=== PATIENT | female | born 1975 | race Caucasian/White ===

== ENCOUNTER → 2017-08-13 17:55 | Outpatient (CLI) | payer BC, SELFPAY ==
--- NOTE | 2017-08-13 18:01 | XR_ITS ---
XR chest 2V HISTORY: ITS.REASON: MODERATE PERSISTENT ASTHMATIC BRONCHITIS WITH EXACERBATION ORDERING PHYSICIAN: Balwinder Willams MD PATIENT AGE: 42 years COMPARISON: FINDINGS: The cardiomediastinal silhouette and pulmonary vascularity are within normal limits. Coronary artery calcifications are present. There is hyperinflation with attenuation of peripheral pulmonary vessels. Patchy infiltrate is present within the lingula. No acute bony abnormalities. IMPRESSION: Hyperinflation consistent with small airway disease with infiltrate within the lingula
== END ==
PROVIDERS: PCP Family Medicine; Visit Provider Family Medicine
DX: J45.41 Moderate persistent asthma with (acute) exacerbation (principal)
CPT/HCPCS: 71046

== ENCOUNTER → 2017-09-18 12:03 | Outpatient (CLI) | payer BC, SELFPAY ==
--- NOTE | 2017-09-18 12:14 | XR_ITS ---
XR chest 2V HISTORY: ITS.REASON: COUGH ORDERING PHYSICIAN: Grady Montiel MD PATIENT AGE: 42 years COMPARISON: 08/22/2017 FINDINGS: The cardiomediastinal silhouette and pulmonary vascularity are within normal limits. The lungs are clear without infiltrates, suspicious nodules, or pleural effusions. Previously noted patchy density in the right lung base medially is not apparent No acute bony abnormalities. IMPRESSION: No acute finding
== END ==
PROVIDERS: PCP Family Medicine; Visit Provider Family Medicine
DX: R05 Cough (principal)
CPT/HCPCS: 71046

== ENCOUNTER → 2017-10-08 09:44 | Outpatient (CLI) | payer BC, SELFPAY ==
--- NOTE | 2017-10-08 09:47 | MM_ITS ---
MM Dig screening mamm BI w/CAD CAD Screening COMPARISON: Digital mammograms 04/24/2016 and 11/01/2015 INDICATION: There is no personal or family history of breast cancer. TECHNIQUE: Standard CC and MLO images were obtained. R2 CAD reviewed. FINDINGS: Moderate diffuse heterogenic fibroglandular densities are seen in both breast and the findings are bilateral and symmetrical. There are few scattered benign-appearing calcifications in each breast. There is no suspicious lesion and no suspicious microcalcifications. IMPRESSION: Moderate diffuse breast density with no suspicious lesion seen BI-RADS Category: 2 Benign Finding(s) RECOMMENDED FOLLOW-UP: 1YR - 1 YEAR FOLLOW-UP (A letter has been sent to the patient regarding results of the study.)
== END ==
PROVIDERS: Family Provider Family Medicine; PCP Family Medicine; Visit Provider Obstetrics & Gynecology Gynecology
DX: Z12.31 Encounter for screening mammogram for malignant neoplasm of breast (principal)
CPT/HCPCS: 77067

== ENCOUNTER → 2018-08-03 13:28 | Outpatient (CLI) | payer BC, SELFPAY ==
--- NOTE | 2018-08-03 13:35 | XR_ITS ---
XR hip LT 2-3V w/pelvis HISTORY: ITS.REASON: BILAT HIP PAIN ORDERING PHYSICIAN: Micaela Sneed MD PATIENT AGE: 43 years COMPARISON: None FINDINGS: No fracture or dislocation is evident. No significant degenerative change. No lytic or blastic change. Unremarkable soft tissues. There is a small well-circumscribed lucency involving the proximal femoral shaft. This measures 5 mm and is unchanged from an older exam of 01/04/2015 and is felt to represent a benign finding. IMPRESSION: Negative left hip
--- NOTE | 2018-08-03 13:35 | XR_ITS ---
XR hip RT 2-3V w/pelvis HISTORY: ITS.REASON: BILAT HIP PAIN ORDERING PHYSICIAN: Micaela Sneed MD PATIENT AGE: 43 years COMPARISON: None FINDINGS: No fracture or dislocation is evident. No significant degenerative change. No lytic or blastic change. Unremarkable soft tissues IMPRESSION: Negative hip
== END ==
PROVIDERS: PCP Family Medicine; Visit Provider Emergency Medicine
DX: M25.551 Pain in right hip (principal); M25.552 Pain in left hip
CPT/HCPCS: 73502

== ENCOUNTER → 2019-02-10 10:29 | Outpatient (CLI) | payer BC, SELFPAY ==
--- NOTE | 2019-02-10 10:32 | MM_ITS ---
PROCEDURE: MM DIG SCREENING MAMM BI W/CAD CLINICAL INDICATION: SCREENING There is no personal or family history of breast cancer COMPARISON: [facility]MDB[facility] DIG MAMM-DX SUNITA W ADD VIEWS from 11/01/2015 DMDB[facility] DIG MAMM-DX SUNITA W/AVWS W/CAD from 04/24/2016 [facility] MM Dig screening mamm BI w/CAD from 10/08/2017 TECHNIQUE: Standard CC and MLO images were obtained. R2 CAD reviewed. FINDINGS: Prominent diffuse heterogenic fibroglandular densities are seen throughout both breast somewhat lessening the sensitivity of mammography. There are scattered benign-appearing microcalcifications in each breast. There is no new or suspicious lesion in either breast and no suspicious microcalcifications. IMPRESSION: Moderate diffuse breast density with no suspicious lesions seen BI-RAD Category: 2 Benign Finding(s) FOLLOW-UP: 1 Year Follow-up (A letter has been sent to the patient regarding results of the study.) Dictated by: Dr. Juan Diego Andrade MD 02/13/2019 09:[address] Juan Diego nAdrade MD in [place] 02/13/2019 09:23
== END ==
PROVIDERS: PCP Family Medicine; Visit Provider Obstetrics & Gynecology Gynecology
DX: Z12.31 Encounter for screening mammogram for malignant neoplasm of breast (principal)
CPT/HCPCS: 77067

== ENCOUNTER → 2019-04-23 16:59 | Outpatient (CLI) | payer BC, SELFPAY ==
--- NOTE | 2019-04-23 17:20 | XR_ITS ---
PROCEDURE: XR CHEST 2V CLINICAL HISTORY: PERSISTENT COUGH COMPARISON: No exams were available for comparison FINDINGS: The cardiomediastinal silhouette and pulmonary vascularity are within normal limits. The lungs are clear without infiltrates, suspicious nodules, or pleural effusions. No acute bony abnormalities. IMPRESSION: No acute findings. Dictated by: Alexis Stevenson MD 04/24/2019 07:10 Electronically signed by Alexis Stevenson MD in [place] 04/24/2019 07:10
== END ==
PROVIDERS: PCP Family Medicine; Visit Provider Family Medicine
DX: J45.41 Moderate persistent asthma with (acute) exacerbation (principal)
CPT/HCPCS: 71046

== ENCOUNTER → 2020-02-15 11:11 | Outpatient (CLI) | payer BC, SELFPAY ==
--- NOTE | 2020-02-15 11:14 | MM_ITS ---
PROCEDURE: MM DIG SCREENING MAMM BI W/CAD Digital Breast Tomosynthesis Included CLINICAL INDICATION: SCREENING There is no personal or family history of breast cancer. COMPARISON: MG DMDBAV DIG MAMM-DX SUNITA W/AVWS W/CAD from 04/24/2016 MG [facility] MM Dig screening mamm BI w/CAD from 10/08/2017 MG MM DIG SCREENING MAMM BI W/CAD from 02/10/2019 TECHNIQUE: Standard CC and MLO images and 3D Tomosynthesis was obtained. R2 CAD reviewed. FINDINGS: Moderate scattered fibroglandular densities are seen throughout both breast and the findings are bilateral and symmetrical. There are scattered benign-appearing microcalcifications in each breast several which appear to be cutaneous. There is no suspicious lesion in either breast and no suspicious microcalcifications. IMPRESSION: Moderate diffuse breast density with no suspicious lesions seen BI-RAD Category: 2 Benign Finding(s) FOLLOW-UP: 1YR 1 Year Follow-up (A letter has been sent to the patient regarding results of the study.) Dictated by: Dr. Juan Diego Andrade MD 02/16/2020 12:38 Dr. Juan Diego Andrade MD in [place] 02/16/2020 12:38
== END ==
PROVIDERS: PCP Family Medicine; Visit Provider Obstetrics & Gynecology Gynecology
DX: Z12.31 Encounter for screening mammogram for malignant neoplasm of breast (principal)
CPT/HCPCS: 77063; 77067

== ENCOUNTER → 2021-07-11 13:44 | Outpatient (CLI) | payer BC, SELFPAY ==
--- NOTE | 2021-07-11 13:48 | XR_ITS ---
FINAL REPORT TECHNIQUE: Chest PA & Lateral CLINICAL HISTORY: BRONCHITIS COMPARISON: December 06, 2020 FINDINGS: 2 views of the chest were performed. The heart size is normal. The mediastinum is within normal limits. There is no acute cardiopulmonary process. There are no pleural effusions. There is no pneumothorax. The bony thorax appears intact. IMPRESSION: No acute cardiopulmonary process. Reviewed, Interpreted and Dictated by Humza Mak MD Transcribed by Rodrigue Snyder Authenticated by Humza Mak MD on 07/11/2021 03:52:49 PM [facility]
== END ==
PROVIDERS: PCP Family Medicine; Visit Provider Family Medicine
DX: J45.41 Moderate persistent asthma with (acute) exacerbation (principal)
CPT/HCPCS: 71046

== ENCOUNTER 2022-04-01 08:11 | Emergency (ER) | payer BC, SELFPAY ==
--- NOTE | 2022-04-01 08:24 | XR_ITS ---
FINAL REPORT TECHNIQUE: Chest PA & Lateral CLINICAL HISTORY: cough copd COMPARISON: June 2021 FINDINGS: 2 views of the chest were performed. The heart size is normal. The mediastinum is within normal limits. There is no acute cardiopulmonary process. There are no pleural effusions. There is no pneumothorax. The bony thorax appears intact. IMPRESSION: No acute cardiopulmonary process. Reviewed, Interpreted and Dictated by Alex Hernandez III, MD Transcribed by Rodrigue Snyder Authenticated and [facility]
--- NOTE | 2022-04-01 08:31 | EXP.UTC ---
Discharge Plan Disposition Patient Disposition: Home, Self-Care Condition: Good Prescriptions Prescriptions: New azithromycin [Zithromax] 250 mg tablet 250 mg PO UD DOSE PK Qty: 6 0RF Rx Instructions: Take two (2) tablets today, then one (1) tablet days #2 thru #5 oseltamivir [Tamiflu] 75 mg capsule 75 mg PO BID Qty: 10 0RF methylprednisolone 4 mg Tablets,Dose Pack 4 mg PO DIRECTED Qty: 21 0RF albuterol sulfate [Ventolin HFA] 90 mcg/actuation HFA aerosol inhaler 2 puff inhalation Q6H PRN (Reason: shortness of breath or wheezing) Qty: 6.7 0RF promethazine-DM 6.25-15 mg/5 mL Syrup 5 ml PO Q6H PRN (Reason: Cough) Qty: 240 0RF No Action diclofenac potassium 25 mg capsule 25 mg PO BID Tubersol 5 tub. unit /0.1 mL solution 0.1 ml INTRADERMA ONCE Qty: 0.1 0RF Referrals Follow up/Referrals: Balwinder Willams MD [Primary Care Provider] - See instructions Activity Restrictions/Add. Instructions Additional Instructions/Restrictions: Drink plenty of fluids. Take tylenol or ibuprofen for pain or fever. Take the medications as directed. Follow up with your regular doctor. GO TO THE ER FOR ANY WORSENING SYMPTOMS The cough medication (promethazine dm) will make you drowsy, so don't drive or operate heavy machinery after taking it. Clinical Impressions Clinical Impression: Acute bronchitis, Influenza A Stand Alone Forms Stand Alone Forms: Work/School Release Instructions Patient Instructions: DI for Influenza -- Adult, Oseltamivir Discharge ED Provider: Juan R Talbot [facility] [place] General Stated complaint: fever,cough,headache Time Seen by Provider: 04/01/22 08:30 History of Present Illness Provider Complaint: She states that for the past 2 days she has had a cough, chest congestion, sinus congestion, and she has felt bad. Related Data Home Medications Medication Instructions Recorded Confirmed diclofenac potassium 25 mg capsule 25 mg PO BID 10/31/18 12/22/18 Previous Rx's Medication Instructions Recorded albuterol sulfate 90 mcg/actuation 2 puff inhalation Q6H PRN 04/01/22 aerosol inhaler (Ventolin HFA) shortness of breath or wheezing #6.7 grams azithromycin 250 mg tablet 250 mg PO UD DOSE PK #6 tabs 04/01/22 (Zithromax) methylprednisolone 4 mg tablets in 4 mg PO DIRECTED #21 tabs 04/01/22 a dose pack oseltamivir 75 mg capsule (Tamiflu) 75 mg PO BID #10 caps 04/01/22 promethazine-DM 6.25 mg-15 mg/5 mL 5 ml PO Q6H PRN Cough #240 mL 04/01/22 oral syrup Allergies Allergy/AdvReac Type Severity Reaction Status Date / Time No Known Allergies Allergy Verified 04/01/22 08:52 [facility] Disclaimer: The information contained in this section may have been updated after the patient was seen, as this information can be updated by other users. Social History Smoking Status: Current every day smoker tobacco type: cigarettes packs per day: 1 alcohol intake: never substance use type: denies use current occupational status: employed Travel in the last 8 weeks: None household members: family ROS Obtained: Yes All systems reviewed & no additional complaints except as documented Constitutional Constitutional: Reports chills and Reports fever(s) Eyes Eyes: Denies eye discharge ENT Ears, Nose, Mouth, and Throat: Reports as per HPI Cardiovascular Cardiovascular: Denies chest pain and Denies dyspnea Respiratory Respiratory: Denies shortness of breath, Reports chest congestion, Reports cough, Denies dyspnea, Denies stridor and Denies wheezing Gastrointestinal Gastrointestingal: Reports nausea; Denies abdominal pain, constipation, cramping, diarrhea or vomiting Musculoskeletal Musculoskeletal: Denies arthralgias Integumentary/Breasts Skin/Breast: Denies rash Neurologic Neurologic: Denies paresthesias Allergic/Immunologic Allergic/Immunologic: Denies wheezing [facility]
[2022-04-01 08:38] LABS: UTC Strep Screen (Rapid) Negative (Negative)
[2022-04-01 08:39] LABS: Adenovirus,PCR Not Detected (NotDetected); Bordetella Pertussis Not Detected (NotDetected); Chlamydophila Pneumoniae, PCR Not Detected (NotDetected); Coronavirus 19, PCR Not Detected (NotDetected); Coronavirus 229E Not Detected (NotDetected); Coronavirus NL63 Not Detected (NotDetected); Coronavirus OC43 Not Detected (NotDetected); Coronovirus HKU1,PCR Not Detected (NotDetected); Human Metapneumovirus Not Detected (NotDetected); Influenza A, PCR Not Detected (NotDetected); Influenza AH1, PCR Not Detected (NotDetected); Influenza AH3,PCR Not Detected (NotDetected); Influenza B, PCR Not Detected (NotDetected); Mycoplasma Pneumoniae, PCR Not Detected (NotDetected); Parainfluenza 1, PCR Not Detected (NotDetected); Parainfluenza 2, PCR Not Detected (NotDetected); Parainfluenza 3, PCR Not Detected (NotDetected); Parainfluenza 4, PCR Not Detected (NotDetected); Respiratory Syncytial Virus Not Detected (NotDetected); Rhinovirus/Enterovirus Not Detected (NotDetected)
[2022-04-01 08:49] VITALS: BP 139/83; PULSE 116; RESP 16; TEMP 37.7; O2SAT 97; BMI 25.7
[2022-04-01 09:18] VITALS: BP 139/83; PULSE 116; RESP 16; TEMP 37.7
[2022-04-01 11:05] LABS: Influenza AH1, 2009 Detected (NotDetected)
== END 2022-04-01 09:19 | disposition home or self-care (01) ==
PROVIDERS: Emergency Provider Nurse Practitioner Family; PCP Family Medicine
DX: J10.1 Influenza due to other identified influenza virus with other respiratory manifestations (principal)
CPT/HCPCS: 71046; 87581; 87632; 87798; 87880; 99212; C9803; G0463; U0003; U0005

== ENCOUNTER 2022-05-21 13:36 | Emergency (ER) | payer BC, SELFPAY ==
[2022-05-21 13:40] VITALS: BP 117/75; PULSE 111; RESP 21; TEMP 36.8; O2SAT 96; BMI 25.0
--- NOTE | 2022-05-21 13:58 | EXP.UTC ---
Discharge Plan Disposition Patient Disposition: Home, Self-Care Condition: Good Prescriptions Prescriptions: New prednisone [prednisone] 20 mg tablet 20 mg PO BID 5 Days Qty: 10 0RF benzonatate 100 mg capsule 100 mg PO TID PRN (Reason: cough) Qty: 30 0RF amoxicillin-pot clavulanate 875-125 mg Tablet 1 tab PO Q12H Qty: 20 0RF No Action citalopram 20 mg tablet 20 mg PO DAILY fluticasone propion-salmeterol [Advair Diskus] 500-50 mcg/dose blister with device 1 ea INHALATION DAILY medroxyprogesterone 150 mg/mL suspension 150 mg IM WEEKLY albuterol sulfate [Ventolin HFA] 90 mcg/actuation HFA aerosol inhaler 2 puff inhalation Q6H PRN (Reason: shortness of breath or wheezing) Qty: 6.7 0RF Referrals Follow up/Referrals: Balwinder Willams MD [Primary Care Provider] - See instructions Activity Restrictions/Add. Instructions Additional Instructions/Restrictions: *Monitor Temp, Over the counter Motrin or Tylenol as directed/as needed Tylenol every 4 hours and Motrin every 6 hours (as long as your family doctor has told you that you can take it) for fever or pain. and straight to ER if unable to lower temp less than 101.0 after medication given *Warm salt water gargles may help to soothe the throat *Throat Lozenges? *Warm fluids like tea with honey may help to soothe the throat? *Sleep elevated *Humidifier/Vaporizer Take medication as prescribed Your throat swab was sent for culture. Those results are typically sent to your primary care. Be sure to follow up in 2-3 days with your family doctor/primary care physician if no improvement so they can review those result and treat if necessary. If you don?t have a primary care doctor, I recommend you get one but in the mean time, you will have to return to a walk in clinic Follow up IMMEDIATELY for new or worsening symptoms or no Noticeable improvement over the next 48-72 hours. 911 for difficulty breathing or swallowing Clinical Impressions Clinical Impression: Sinusitis, Bronchitis Stand Alone Forms Stand Alone Forms: Work/School Release Instructions Patient Instructions: DI for Sinusitis, Sinusitis, Acute Bronchitis [place]charge ED [place] Afshan [place] [facility] [place] General Stated complaint: Cough chest congestion Mode of Arrival: Ambulatory Source of Information: Patient Limitations: No Limitations Time Seen by Provider: 05/21/22 13:58 Description of Symptoms (Recalled from Triage Doc. by RN): PATIENT C/O CHEST CONGESTION AND COUGH X 3-4 DAYS HEENT Symptoms (Recalled from RN notes): No Resp Symptoms (Recalled from RN notes): Yes Skin Symptoms (Recalled from RN notes): No MS Symptoms (Recalled from RN notes): No Functional Status (Recalled from RN notes): WNL History of Present Illness Provider Complaint: Patient states she has been having cough, sinus and chest congestion and burning in her throat when she cough States that she has asthma and wanted to get ahead of it before it got too bad Related Data Home Medications Medication Instructions Recorded Confirmed citalopram 20 mg tablet 20 mg PO DAILY . 05/21/22 05/21/22 fluticasone 500 mcg-salmeterol 50 1 ea inhalation DAILY Asthma 05/21/22 05/21/22 mcg/dose blistr powdr for inhalation (Advair Diskus) medroxyprogesterone 150 mg/mL 150 mg IM WEEKLY . 05/21/22 05/21/22 intramuscular suspension Previous Rx's Medication Instructions Recorded albuterol sulfate 90 mcg/actuation 2 puff inhalation Q6H PRN 04/01/22 aerosol inhaler (Ventolin HFA) shortness of breath or wheezing #6.7 grams amoxicillin 875 mg-potassium 1 tab PO Q12H #20 tabs 05/21/22 clavulanate 125 mg tablet benzonatate 100 mg capsule 100 mg PO TID PRN cough #30 caps 05/21/22 prednisone 20 mg tablet 20 mg PO BID 5 days #10 tabs 05/21/22 Allergies Allergy/AdvReac Type Severity Reaction Status Date / Time No Known Allergies Allergy Verified 04/01/22 08:52 Worker[facility]
[2022-05-21 14:20] LABS: UTC Strep Screen (Rapid) Negative (Negative)
[2022-05-21 14:21] VITALS: BP 117/75; PULSE 111; RESP 21; TEMP 36.8; O2SAT 96
== END 2022-05-21 14:33 | disposition home or self-care (01) ==
PROVIDERS: Emergency Provider Nurse Practitioner; PCP Family Medicine
DX: J32.9 Chronic sinusitis, unspecified (principal); J40 Bronchitis, not specified as acute or chronic
CPT/HCPCS: 87880; 99212; 99213; G0463

== ENCOUNTER 2023-03-12 10:37 | Emergency (ER) | payer SELFPAY ==
[2023-03-12 10:39] VITALS: BP 133/81; PULSE 105; RESP 18; TEMP 36.7; O2SAT 99; BMI 26.6
--- NOTE | 2023-03-12 11:12 | EXP.UTC ---
Discharge Plan Disposition Patient Disposition: Home, Self-Care Condition: Good Prescriptions Prescriptions: New prednisone 10 mg tablet 10 mg PO DIRECTED 9 Days Qty: 21 0RF Rx Instructions: Take 4 tablets daily for 3 days, then take 2 tablets daily for 3 days, then take 1 tablet daily for 3 days, then stop. amoxicillin [amoxicillin] 875 mg tablet 875 mg PO Q12H Qty: 20 0RF benzonatate [benzonatate] 100 mg capsule 100 mg PO TIDP PRN (Reason: Cough) Qty: 30 0RF No Action citalopram 20 mg tablet 20 mg PO DAILY fluticasone propion-salmeterol [Advair Diskus] 500-50 mcg/dose blister with device 1 ea INHALATION DAILY medroxyprogesterone 150 mg/mL suspension 150 mg IM WEEKLY prednisone [prednisone] 20 mg tablet 20 mg PO BID 5 Days Qty: 10 0RF benzonatate 100 mg capsule 100 mg PO TID PRN (Reason: cough) Qty: 30 0RF amoxicillin-pot clavulanate 875-125 mg Tablet 1 tab PO Q12H Qty: 20 0RF albuterol sulfate [Ventolin HFA] 90 mcg/actuation HFA aerosol inhaler 2 puff inhalation Q6H PRN (Reason: shortness of breath or wheezing) Qty: 6.7 0RF Referrals Follow up/Referrals: Balwinder Willams MD [Primary Care Provider] - See instructions Activity Restrictions/Add. Instructions Additional Instructions/Restrictions: Drink plenty of fluids. Take tylenol or ibuprofen for pain or fever. Take the medications as directed. Follow up with your regular doctor. GO TO THE ER FOR ANY WORSENING SYMPTOMS Clinical Impressions Clinical Impression: Acute bronchitis Stand Alone Forms Stand Alone Forms: Work/School Release Instructions Patient Instructions: Acute Bronchitis, DI for Acute Bronchitis Discharge ED Provider: Juan R Talbot [facility] [place] General Stated complaint: Pain in right rib area Mode of Arrival: Ambulatory Source of Information: Patient Limitations: No Limitations Time Seen by Provider: 03/12/23 11:12 Description of Symptoms (Recalled from Triage Doc. by RN): c/o right rib pain for 2 weeks HEENT Symptoms (Recalled from RN notes): No Resp Symptoms (Recalled from RN notes): No Skin Symptoms (Recalled from RN notes): No MS Symptoms (Recalled from RN notes): Yes Functional Status (Recalled from RN notes): wnl History of Present Illness Provider Complaint: She states that she has had a cough for the past 2 weeks. She is having pleuritic type chest pain on the right side now. She denies any fever/chills/body aches. Related Data Home Medications Medication Instructions Recorded Confirmed citalopram 20 mg tablet 20 mg PO DAILY . 05/21/22 05/21/22 fluticasone 500 mcg-salmeterol 50 1 ea inhalation DAILY Asthma 05/21/22 05/21/22 mcg/dose blistr powdr for inhalation (Advair Diskus) medroxyprogesterone 150 mg/mL 150 mg IM WEEKLY . 05/21/22 05/21/22 intramuscular suspension Previous Rx's Medication Instructions Recorded albuterol sulfate 90 mcg/actuation 2 puff inhalation Q6H PRN 04/01/22 aerosol inhaler (Ventolin HFA) shortness of breath or wheezing #6.7 grams amoxicillin 875 mg-potassium 1 tab PO Q12H #20 tabs 05/21/22 clavulanate 125 mg tablet benzonatate 100 mg capsule 100 mg PO TID PRN cough #30 caps 05/21/22 prednisone 20 mg tablet 20 mg PO BID 5 days #10 tabs 05/21/22 amoxicillin 875 mg tablet 875 mg PO Q12H #20 tabs 03/12/23 benzonatate 100 mg capsule 100 mg PO TIDP PRN Cough #30 caps 03/12/23 prednisone 10 mg tablet 10 mg PO DIRECTED 9 days #21 03/12/23 tabs Allergies Allergy/AdvReac Type Severity Reaction Status Date / Time No Known Allergies Allergy Verified 04/01/22 08:52 Worker's Comp Is this a Worker's Comp case?: No [facility] Disclaimer: The information contained in this section may have been updated after the patient was seen, as this information can be updated by other users. Medical History (Updated 03/12/23 @ 11:29 by Juan R Talbot APRN) Asthma Social History (Updated 05/21/22 @ 13:51 b
[2023-03-12 12:18] VITALS: BP 133/81; PULSE 105; RESP 18; TEMP 36.7; O2SAT 99
== END 2023-03-12 12:19 | disposition home or self-care (01) ==
PROVIDERS: Emergency Provider Nurse Practitioner Family; PCP Family Medicine
DX: J20.9 Acute bronchitis, unspecified (principal); R09.1 Pleurisy; R05.9 Cough, unspecified; F17.210 Nicotine dependence, cigarettes, uncomplicated; J45.909 Unspecified asthma, uncomplicated
CPT/HCPCS: 96372; 99212; 99214; G0463; J0696

== ENCOUNTER 2023-03-15 08:59 | Emergency (ER) | payer SELFPAY ==
--- NOTE | 2023-03-15 09:12 | XR_ITS ---
PROCEDURE INFORMATION: Exam: XR Right Ribs with PA Chest Exam date and time: 03/15/2023 9:15 AM Age: 48 years old Clinical indication: Other: Cough; Patient HX: Right rib pain breast level that wraps into back; Additional info: Pain, cough TECHNIQUE: Imaging protocol: Radiologic exam of the right ribs with PA chest. Views: 3 views COMPARISON: CR XR CHEST 2V 04/01/2022 8:22 AM FINDINGS: Lungs: Unremarkable. No consolidation. Pleural spaces: Unremarkable. No pleural effusion. No pneumothorax. Heart/Mediastinum: Unremarkable. No cardiomegaly. Bones/joints: Unremarkable. IMPRESSION: No acute findings.
[2023-03-15 09:17] VITALS: BP 143/77; PULSE 105; RESP 20; TEMP 36.6; O2SAT 98; BMI 25.8
--- NOTE | 2023-03-15 09:34 | EXP.UTC ---
Discharge Plan Disposition Patient Disposition: Home, Self-Care Condition: Good Prescriptions Prescriptions: No Action citalopram 20 mg tablet 20 mg PO DAILY fluticasone propion-salmeterol [Advair Diskus] 500-50 mcg/dose blister with device 1 ea INHALATION DAILY medroxyprogesterone 150 mg/mL suspension 150 mg IM WEEKLY prednisone [prednisone] 20 mg tablet 20 mg PO BID 5 Days Qty: 10 0RF benzonatate 100 mg capsule 100 mg PO TID PRN (Reason: cough) Qty: 30 0RF amoxicillin-pot clavulanate 875-125 mg Tablet 1 tab PO Q12H Qty: 20 0RF albuterol sulfate [Ventolin HFA] 90 mcg/actuation HFA aerosol inhaler 2 puff inhalation Q6H PRN (Reason: shortness of breath or wheezing) Qty: 6.7 0RF prednisone 10 mg tablet 10 mg PO DIRECTED 9 Days Qty: 21 0RF Rx Instructions: Take 4 tablets daily for 3 days, then take 2 tablets daily for 3 days, then take 1 tablet daily for 3 days, then stop. amoxicillin [amoxicillin] 875 mg tablet 875 mg PO Q12H Qty: 20 0RF benzonatate [benzonatate] 100 mg capsule 100 mg PO TIDP PRN (Reason: Cough) Qty: 30 0RF Referrals Follow up/Referrals: Balwinder Willams MD [Primary Care Provider] - See instructions Activity Restrictions/Add. Instructions Additional Instructions/Restrictions: Continue taking your medication as prescribed Ibuprofen as directed on package for pain Mucinex may help you to clear congestion Follow up with your Family Doctor if the pain continues Straight to ER if any worsening pain, shortness of breath, swelling in extremities or any life threatening symptoms Clinical Impressions Clinical Impression: Pain aggravated by coughing and deep breathing Instructions Patient Instructions: DI for Pleurisy, Ibuprofen Discharge ED Provider: Afshan Paez [facility] [place] H[place] General Stated complaint: pain right side to back severe Time Seen by Provider: 03/15/23 09:34 Description of Symptoms (Recalled from Triage Doc. by RN): PT C/O COUGH, SHORT OF BREATH, AND PAIN IN RIGHT RIBS THAT RADIATES INTO THE RIGHT SIDE OF HER BACK X'S A WEEK AND A HALF HEENT Symptoms (Recalled from RN notes): No Resp Symptoms (Recalled from RN notes): Yes Skin Symptoms (Recalled from RN notes): No MS Symptoms (Recalled from RN notes): Yes Functional Status (Recalled from RN notes): WNL History of Present Illness Provider Complaint: Patient states that she has been having a cough for about a week and half and she started having pain under her right breast area that radiates around her right rib area into her back States that she thought it may be pleurisy or pneumonia as she has had it before but it has continued to get worse States she was seen a few days ago and started on antibiotics and steriods but it has got worse Reports that is a stabbing like pain that feels like it takes her breath States that she has been taking Ibuprofen to try to help with the pain/discomfort but not working that well States that this morning the pain was worse so she came in Related Data Home Medications Medication Instructions Recorded Confirmed citalopram 20 mg tablet 20 mg PO DAILY . 05/21/22 05/21/22 fluticasone 500 mcg-salmeterol 50 1 ea inhalation DAILY Asthma 05/21/22 05/21/22 mcg/dose blistr powdr for inhalation (Advair Diskus) medroxyprogesterone 150 mg/mL 150 mg IM WEEKLY . 05/21/22 05/21/22 intramuscular suspension Previous Rx's Medication Instructions Recorded albuterol sulfate 90 mcg/actuation 2 puff inhalation Q6H PRN 04/01/22 aerosol inhaler (Ventolin HFA) shortness of breath or wheezing #6.7 grams amoxicillin 875 mg-potassium 1 tab PO Q12H #20 tabs 05/21/22 clavulanate 125 mg tablet benzonatate 100 mg capsule 100 mg PO TID PRN cough #30 caps 05/21/22 prednisone 20 mg tablet 20 mg PO BID 5 days #10 tabs 05/21/22 amoxicillin 875 mg tablet 875 mg PO Q12H #20 tabs 03/12/23 benzonatate 100 mg capsule 100 mg PO TIDP PRN Cough #30 caps 03/12/23 prednis
[2023-03-15 10:24] VITALS: BP 143/77; PULSE 105; RESP 20; TEMP 36.6; O2SAT 98
== END 2023-03-15 10:26 | disposition home or self-care (01) ==
PROVIDERS: Emergency Provider Nurse Practitioner; PCP Family Medicine
DX: R07.1 Chest pain on breathing (principal); R06.02 Shortness of breath; R07.81 Pleurodynia; J45.909 Unspecified asthma, uncomplicated; F17.210 Nicotine dependence, cigarettes, uncomplicated
CPT/HCPCS: 71101; 99212; 99214; G0463

== ENCOUNTER 2023-05-15 14:04 | Outpatient (CLI) | payer BC, SELFPAY ==
--- NOTE | 2023-05-15 14:11 | MM_ITS ---
PROCEDURE INFORMATION: Exam: MG Bilateral Screening 3D Mammography Exam date and time: 05/15/2023 2:00 PM Age: 48 years old Clinical indication: Screening examination TECHNIQUE: Imaging protocol: Bilateral Screening tomosynthesis and 2D mammography including computer-aided detection (CAD) when performed. COMPARISON: 1. MG MM DIG SCREENING MAMM BI W/CAD 02/15/2020 11:20 AM 2. MG MM DIG SCREENING MAMM BI W/CAD 02/10/2019 10:41 AM FINDINGS: MAMMOGRAPHY: Breast composition: The breasts are heterogeneously dense, which may obscure small masses. Mass: None. Architectural distortion: None. Calcifications: No suspicious calcifications. Asymmetric density: None. Skin thickening: None. Axillary adenopathy: None. IMPRESSION: No mammographic evidence of malignancy. Annual screening is recommended unless otherwise clinically indicated. ASSESSMENT: BI-RADS Category 1: Negative
== END 2023-05-15 23:59 ==
LOC: RAD 14:05
PROVIDERS: PCP Family Medicine; Visit Provider Obstetrics & Gynecology Gynecology
DX: Z12.31 Encounter for screening mammogram for malignant neoplasm of breast (principal)
CPT/HCPCS: 77063; 77067

== ENCOUNTER 2023-06-25 08:16 | Emergency (ER) | payer BC, SELFPAY ==
[2023-06-25 08:35] VITALS: BP 129/77; PULSE 112; RESP 20; TEMP 36.9; O2SAT 99; BMI 29.2
--- NOTE | 2023-06-25 08:40 | ED_ITS ---
Discharge Plan Disposition Patient Disposition: Home, Self-Care Condition: Good Prescriptions Prescriptions: New methylprednisolone [Medrol (Chong)] 4 mg tablets,dose pack See Rx Instructions .Route .COMPLEX 6 Days Qty: 21 0RF Rx Instructions: taper pack; amoxicillin-pot clavulanate 875-125 mg Tablet 1 tab PO Q12H Qty: 20 0RF guaifenesin [Mucinex] 600 mg tablet extended release 12hr 1,200 mg PO BID PRN (Reason: cough) Qty: 20 0RF benzonatate 100 mg capsule 100 mg PO TID PRN (Reason: cough) Qty: 30 0RF No Action fluticasone propion-salmeterol [Wixela Inhub] 500-50 mcg/dose blister with device 1 ea INHALATION DAILY fluoxetine 10 mg capsule 10 mg PO DAILY albuterol sulfate 90 mcg/actuation HFA aerosol inhaler 2 puff INHALATION DAILY medroxyprogesterone 150 mg/mL suspension 150 mg IM ONCE Referrals Follow up/Referrals: Balwinder Willams MD [Primary Care Provider] - See instructions Activity Restrictions/Add. Instructions Additional Instructions/Restrictions: * Start antibiotic today. Be sure to complete entire prescription even if feeling better * Monitor temp. Tylenol every 4 hours as needed and / or ibuprofen every 6 hours as needed ( As long as your primary care physician has told you that it ok to take both. For fever/aches/pains ER if no less than 101 despite Tylenol or Motrin * Humidifier/vaporizer or hot steamy shower * Inhaler every 4-6 hours as needed like we discussed. If unsure how to use it, ask pharmacist to demonstrate how. Should help open airways and improve cough, wheezing, and shortness of breath * Mucinex during the day for your cough and cough suppressant only at night. Be sure to drink lots of water. Insurance may not cover a prescriptions for mucinex. Might be cheaper to get 400mg tablets and take 2 tablet in the morning, mid-day and evening with lots of water. *Tessalon Perles will not cause drowsiness but use at bedtime to help stop cough so that you may get some rest. *Start steroid today. Helps with inflammation therefore, cough and wheezing. Follow directions on the package. Reviewed side effects. Patient reports taking them before. Over the counter ibuprofen may help with pleurisy pain if you can take it Follow up IMMEDIATELY for new or worsening of symptoms OR no noticeable improvement over the next 48-72 hours. 911 immediately for any life threatening symptoms such as chest pain or difficulty breathing Clinical Impressions Clinical Impression: Bronchitis, Sinusitis Instructions Patient Instructions: DI for Sinusitis, Acute Bronchitis Discharge ED Provider: Afshan Paez [facility] [place] HPI General Stated complaint: head congestion Time Seen by Provider: 06/25/23 08:40 History of Present Illness Provider Complaint: Patient states that she is an everyday smoker States she has been having sinus pain and pressure, cough and chest congestion States she has a hx of Pleurisy and bronchitis and feels like it does when she has that States that she wanted to come in and get checked before it got too bad and turned into pneumonia or something Denies SOA Related Data Home Medications Medication Instructions Recorded Confirmed albuterol sulfate 90 mcg/actuation 2 puff inhalation DAILY 06/25/23 06/25/23 aerosol inhaler fluoxetine 10 mg capsule 10 mg PO DAILY 06/25/23 06/25/23 fluticasone 500 mcg-salmeterol 50 1 ea inhalation DAILY 06/25/23 06/25/23 mcg/dose blistr powdr for inhalation (Wixela Inhub) medroxyprogesterone 150 mg/mL 150 mg IM ONCE 06/25/23 06/25/23 intramuscular suspension Previous Rx's Medication Instructions Recorded amoxicillin 875 mg-potassium 1 tab PO Q12H #20 tabs 06/25/23 clavulanate 125 mg tablet benzonatate 100 mg capsule 100 mg PO TID PRN cough #30 caps 06/25/23 guaifenesin 600 mg tablet, 1,200 mg (2 x 600 mg) PO BID PRN 06/25/23 extended release 12 hr (Mucinex) cough #20 tabs methylprednisolone 4 mg tablets in See Rx Instructions .Route 06/25/23 a dose pack (Medrol (Chong)) .COMPLEX 6 days #21 tabs Allergies Allergy/AdvReac Type Severity Reaction Status Date / Time No Known Allergies Allergy Verified 04/01/22 08:52 [facility] Disclaimer: The information contained in this section may have been updated after the patient was seen, as this information can be updated by other users. Medical History (Updated 06/25/23 @ 08:49 by Afshan Paez APRN) Asthma Social History (Updated 05/21/22 @ 13:51 by Lisette Marti RN) Smoking Status: Current every day smoker tobacco type: cigarettes packs per day: 1 alcohol intake: never substance use type: denies use current occupational status: employed Travel in the last 8 weeks: None household members: family ROS Obtained: Yes All systems reviewed & no additional complaints except as documented and Yes Systems reviewed as appropriate & no additional complaints except as documented Constitutional Constitutional: Reports system reviewed and no additional complaints, except as documented, Reports as per HPI and Reports headache(s) ENT Ears, Nose, Mouth, and Throat: Reports system reviewed and no additional complaints, except as documented, Reports as per HPI, Reports headache(s), Reports sinus pain, Reports sinus pressure and Reports sore throat Cardiovascular Cardiovascular: Reports system reviewed and no additional complaints, except as documented and Reports as per HPI Respiratory Respiratory: Reports system reviewed and no additional complaints, except as documented, Reports as per HPI, Denies shortness of breath, Reports chest congestion, Reports cough and Reports pain with cough (at times) Gastrointestinal Gastrointestingal: Reports system reviewed and no additional complaints, except as documented and as per HPI Neurologic Neurologic: Reports headache(s) Physical Exam General General appearance: alert and in no apparent distress ENT ENT exam: Present mucous membranes moist Expanded ENT Exam Nose exam: Present sinus tenderness Throat exam: Present other (Pharyngeal erythema noted with PND) Respiratory Respiratory exam: Present normal lung sounds bilaterally; Absent respiratory distress or wheezes Cardiovascular Cardiovascular exam: Present regular rate, normal rhythm and normal heart sounds Neurological Exam Neurological exam: Present alert, oriented X3 and normal gait Medical Decision Making Jonny Inquiry Pt receiving controlled substance: No Jonny was queried for this patient: No Medical Decision Narrative: Discussed strep test and CXR patient declined at this time just wants to be treated
[2023-06-25 08:50] VITALS: BP 129/77; PULSE 112; RESP 20; TEMP 36.9; O2SAT 99
== END 2023-06-25 08:58 | disposition home or self-care (01) ==
PROVIDERS: Emergency Provider Nurse Practitioner; PCP Family Medicine
DX: J20.9 Acute bronchitis, unspecified (principal); J01.90 Acute sinusitis, unspecified; R05.9 Cough, unspecified; R09.81 Nasal congestion; F17.210 Nicotine dependence, cigarettes, uncomplicated
CPT/HCPCS: 99212; 99214; G0463

== ENCOUNTER 2024-01-12 08:27 | Emergency (ER) | payer BC, SELFPAY ==
[2024-01-12 08:33] VITALS: BP 125/78; PULSE 111; RESP 16; TEMP 36.7; O2SAT 96; BMI 31.2
--- NOTE | 2024-01-12 08:44 | ED_ITS ---
Discharge Plan Disposition Patient Disposition: Home, Self-Care Condition: Good Prescriptions Prescriptions: New amoxicillin-pot clavulanate 875-125 mg Tablet 1 tab PO Q12H Qty: 20 0RF albuterol sulfate [Proventil HFA] 90 mcg/actuation HFA aerosol inhaler 2 puff inhalation Q6H PRN (Reason: shortness of breath or wheezing) Qty: 8.5 1RF methylprednisolone [Medrol (Chong)] 4 mg tablets,dose pack See Rx Instructions .Route .COMPLEX 6 Days Qty: 21 0RF Rx Instructions: taper pack; guaifenesin [Mucinex] 600 mg tablet extended release 12hr 1,200 mg PO BID PRN (Reason: cough) Qty: 30 0RF benzonatate 100 mg capsule 100 mg PO TID PRN (Reason: cough) Qty: 30 0RF No Action fluticasone propion-salmeterol [Wixela Inhub] 500-50 mcg/dose blister with device 1 ea INHALATION DAILY fluoxetine 10 mg capsule 10 mg PO DAILY albuterol sulfate 90 mcg/actuation HFA aerosol inhaler 2 puff INHALATION DAILY medroxyprogesterone 150 mg/mL suspension 150 mg IM ONCE methylprednisolone [Medrol (Chong)] 4 mg tablets,dose pack See Rx Instructions .Route .COMPLEX 6 Days Qty: 21 0RF Rx Instructions: taper pack; amoxicillin-pot clavulanate 875-125 mg Tablet 1 tab PO Q12H Qty: 20 0RF guaifenesin [Mucinex] 600 mg tablet extended release 12hr 1,200 mg PO BID PRN (Reason: cough) Qty: 20 0RF benzonatate 100 mg capsule 100 mg PO TID PRN (Reason: cough) Qty: 30 0RF triamcinolone acetonide 0.1 % cream 1 applic topical BID PRN (Reason: itching) Qty: 30 0RF methylprednisolone 4 mg Tablets,Dose Pack 4 mg PO DIRECTED 6 Days Qty: 21 0RF Rx Instructions: Take 1 pack as directed for 6 days Referrals Follow up/Referrals: Balwinder Willams MD [Primary Care Provider] - See instructions Activity Restrictions/Add. Instructions Additional Instructions/Restrictions: * Start antibiotic today. Be sure to complete entire prescription even if feeling better * Monitor temp. Tylenol every 4 hours as needed and / or ibuprofen every 6 hours as needed ( As long as your primary care physician has told you that it ok to take both. For fever/aches/pains ER if no less than 101 despite Tylenol or Motrin * Humidifier/vaporizer or hot steamy shower * Inhaler every 4-6 hours as needed like we discussed. If unsure how to use it, ask pharmacist to demonstrate how. Should help open airways and improve cough, wheezing, and shortness of breath * Mucinex during the day for your cough and cough suppressant only at night. Be sure to drink lots of water. *Tessalon Perles will not cause drowsiness but use at bedtime to help stop cough so that you may get some rest. *Start steroid today. Helps with inflammation therefore, cough and wheezing. Follow directions on the package. Reviewed side effects. Patient reports taking them before. Follow up IMMEDIATELY for new or worsening of symptoms OR no noticeable improvement over the next 48-72 hours. 911 immediately for any life threatening symptoms such as chest pain or difficulty breathing Clinical Impressions Clinical Impression: Acute bronchitis Instructions Patient Instructions: Cough, Acute Bronchitis Print Language Print Language: Nigerian Discharge ED Provider: Afshan Paez [facility] [place] HPI General Stated complaint: Cough, Mode of Arrival: Ambulatory Source of Information: Patient Time Seen by Provider: 01/12/24 08:45 Description of Symptoms (Recalled from Triage Doc. by RN): BRONCHITIS POSSIBLY HEENT Symptoms (Recalled from RN notes): No Resp Symptoms (Recalled from RN notes): Yes Skin Symptoms (Recalled from RN notes): No MS Symptoms (Recalled from RN notes): No Functional Status (Recalled from RN notes): WNL History of Present Illness Provider Complaint: Patient states that she feels like she is getting sinusitis and bronchitis States feels like it is trying to move into her chest area and she is out of her inhaler so she came in to get checked States she is having chest congestion and cough and coughing up mucous at times Related Data Home Medications ?Medication ?Instructions ?Recorded ?Confirmed albuterol sulfate 90 mcg/actuation 2 puff inhalation DAILY 06/25/23 06/25/23 aerosol inhaler fluoxetine 10 mg capsule 10 mg PO DAILY 06/25/23 06/25/23 fluticasone 500 mcg-salmeterol 50 1 ea inhalation DAILY 03/06/24 03/06/24 mcg/dose blistr powdr for inhalation (Jaronxela Inhub) medroxyprogesterone 150 mg/mL 150 mg IM ONCE 06/25/23 06/25/23 intramuscular suspension Previous Rx's ?Medication ?Instructions ?Recorded amoxicillin 875 mg-potassium 1 tab PO Q12H #20 tabs 06/25/23 clavulanate 125 mg tablet benzonatate 100 mg capsule 100 mg PO TID PRN cough #30 caps 06/25/23 guaifenesin 600 mg tablet, 1,200 mg (2 x 600 mg) PO BID PRN 06/25/23 extended release 12 hr (Mucinex) cough #20 tabs methylprednisolone 4 mg tablets in See Rx Instructions .Route 06/25/23 a dose pack (Medrol (Chong)) .COMPLEX 6 days #21 tabs methylprednisolone 4 mg tablets in 4 mg PO DIRECTED 6 days #21 tabs 12/22/23 a dose pack triamcinolone acetonide 0.1 % 1 applic topical BID PRN itching 12/22/23 topical cream #30 grams albuterol sulfate 90 mcg/actuation 2 puff inhalation Q6H PRN 01/12/24 aerosol inhaler (Proventil HFA) shortness of breath or wheezing #8.5 grams amoxicillin 875 mg-potassium 1 tab PO Q12H #20 tabs 01/12/24 clavulanate 125 mg tablet benzonatate 100 mg capsule 100 mg PO TID PRN cough #30 caps 01/12/24 guaifenesin 600 mg tablet, 1,200 mg (2 x 600 mg) PO BID PRN 01/12/24 extended release 12 hr (Mucinex) cough #30 tabs methylprednisolone 4 mg tablets in See Rx Instructions .Route 01/12/24 a dose pack (Medrol (Chong)) .COMPLEX 6 days #21 tabs Allergies Allergy/AdvReac Type Severity Reaction Status Date / Time No Known Allergies Allergy Verified 12/22/23 08:35 Worker's Comp Is this a Worker's Comp case?: No [facility] Disclaimer: The information contained in this section may have been updated after the patient was seen, as this information can be updated by other users. Medical History (Updated 01/12/24 @ 08:52 by Afshan Paez APRN) Asthma Social History (Updated 05/21/22 @ 13:51 by Lisette Marti RN) Smoking Status: Current every day smoker tobacco type: cigarettes packs per day: 1 alcohol intake: never substance use type: denies use current occupational status: employed Travel in the last 8 weeks: None household members: family ROS Obtained: Yes All systems reviewed & no additional complaints except as documented and Yes Systems reviewed as appropriate & no additional complaints except as documented Constitutional Constitutional: Reports system reviewed and no additional complaints, except as documented and Reports as per HPI ENT Ears, Nose, Mouth, and Throat: Reports system reviewed and no additional complaints, except as documented, Reports as per HPI and Reports sinus pressure Cardiovascular Cardiovascular: Reports system reviewed and no additional complaints, except as documented and Reports as per HPI Respiratory Respiratory: Reports system reviewed and no additional complaints, except as documented, Reports as per HPI, Reports chest congestion and Reports cough Gastrointestinal Gastrointestingal: Reports system reviewed and no additional complaints, except as documented and as per HPI Physical Exam General General appearance: alert and in no apparent distress ENT ENT exam: Present mucous membranes moist Expanded ENT Exam Nose exam: Present sinus tenderness Throat exam: Present other (PND noted) Respiratory Respiratory exam: Present normal lung sounds bilaterally; Absent respiratory distress or wheezes Cardiovascular Cardiovascular exam: Present regular rate, normal rhythm and normal heart sounds Neurological Exam Neurological exam: Present alert, oriented X3 and normal gait Medical Decision Making Medical Records Screening: Per USPSTF and CDC recommendations, given the prevalence of disease in our region, it is our hospital?s policy to screen for HIV and viral Hepatitis for all patients aged 18 and over and those with ongoing risk factors. Jonny Inquiry Pt receiving controlled substance: No Jonny was queried for this patient: No Vital Signs: 01/12/24 08:33 Temperature 98.1 F Temperature Source Oral Pulse Rate [Left Brachial] 111 H Respiratory Rate 16 Blood Pressure [Left Arm] 125/78 Blood Pressure Mean [Left Arm] 93 02 Sat by Pulse Oximetry 96
[2024-01-12 08:53] VITALS: BP 125/78; PULSE 110; RESP 20; TEMP 36.7
== END 2024-01-12 08:57 | disposition home or self-care (01) ==
PROVIDERS: Emergency Provider Nurse Practitioner; PCP Family Medicine
DX: J20.9 Acute bronchitis, unspecified (principal); R09.89 Other specified symptoms and signs involving the circulatory and respiratory systems; J45.909 Unspecified asthma, uncomplicated
CPT/HCPCS: 99212; 99214; G0463

== ENCOUNTER 2024-05-22 19:18 | Emergency (ER) | payer BC, SELFPAY ==
[2024-05-22 19:35] VITALS: BP 141/78; PULSE 86; RESP 19; TEMP 36.8; O2SAT 98; BMI 33.1
--- NOTE | 2024-05-22 19:59 | ED_ITS ---
Discharge Plan Disposition Patient Disposition: Home, Self-Care Condition: Good Prescriptions Prescriptions: New benzonatate 100 mg capsule 100 mg PO TID PRN (Reason: cough) Qty: 30 0RF guaifenesin [Mucinex] 1,200 mg tablet extended release 12hr 1,200 mg PO Q12H PRN (Reason: congestion) Qty: 10 0RF azithromycin [Zithromax Z-Chong] 250 mg tablet See Rx Instructions .ROUTE .COMPLEX 5 Days Qty: 6 0RF Rx Instructions: For 250 mg dose pack: take 500 mg today (day 1), then 250 mg for 4 days (days 2-5) prednisone 20 mg tablet 20 mg PO BID 5 Days Qty: 10 0RF No Action albuterol sulfate 90 mcg/actuation HFA aerosol inhaler 2 puff INHALATION Q4HP PRN (Reason: SOA) Referrals Follow up/Referrals: Balwinder Willams MD [Primary Care Provider] - See instructions Activity Restrictions/Add. Instructions Additional Instructions/Restrictions: Start antibiotic today. Be sure to complete entire prescription even if feeling better * Monitor temp. Tylenol every 4 hours as needed and / or ibuprofen every 6 hours as needed ( As long as your primary care physician has told you that it ok to take both. For fever/aches/pains ER if no less than 101 despite Tylenol or Motrin * Humidifier/vaporizer or hot steamy shower * Inhaler every 4-6 hours as needed like we discussed. If unsure how to use it, ask pharmacist to demonstrate how. Should help open airways and improve cough, wheezing, and shortness of breath * Mucinex during the day for your cough and cough suppressant only at night. Be sure to drink lots of water. *Tessalon Perles will not cause drowsiness but use at bedtime to help stop cough so that you may get some rest. *Start steroid today. Helps with inflammation therefore, cough and wheezing. Follow directions on the package. Reviewed side effects. Patient reports taking them before. Follow up IMMEDIATELY for new or worsening of symptoms OR no noticeable improvement over the next 48-72 hours. 911 immediately for any life threatening symptoms such as chest pain or difficulty breathing Clinical Impressions Clinical Impression: Acute bronchitis, Sinusitis Instructions Patient Instructions: DI for Sinusitis, Acute Bronchitis Print Language Print Language: [place] Discharge ED Provider: Afshan Paez [facility] General Stated complaint: sore throat,LEE,head congestion Mode of Arrival: Ambulatory Source of Information: Patient Limitations: No Limitations Time Seen by Provider: 05/22/24 19:59 Description of Symptoms (Recalled from Triage Doc. by RN): PATIENT DRY COUGH, HEADACHE, AND SORE THROAT SINCE LAST FRIDAY HEENT Symptoms (Recalled from RN notes): Yes Resp Symptoms (Recalled from RN notes): Yes Skin Symptoms (Recalled from RN notes): No MS Symptoms (Recalled from RN notes): No Functional Status (Recalled from RN notes): WNL History of Present Illness Provider Complaint: Patient states that she has been having dry cough, wheezing on and off, sore throat, chest congestion, headache and not feeling well for over a week States that she is out of her albuterol inhaler and it does help with the wheezing States this evening she was worried she would get worse so she came in to get checked Related Data Home Medications ?Medication ?Instructions ?Recorded ?Confirmed albuterol sulfate 90 mcg/actuation 2 puff inhalation Q4HP PRN SOA 05/22/24 05/22/24 aerosol inhaler Previous Rx's ?Medication ?Instructions ?Recorded azithromycin 250 mg tablet See Rx Instructions PO .COMPLEX 5 05/22/24 (Zithromax Z-Chong) days #6 tabs benzonatate 100 mg capsule 100 mg PO TID PRN cough #30 caps 05/22/24 guaifenesin 1,200 mg tablet, 1,200 mg PO Q12H PRN congestion 05/22/24 extended release 12 hr (Mucinex) #10 tabs prednisone 20 mg tablet 20 mg PO BID 5 days #10 tabs 05/22/24 Allergies Allergy/AdvReac Type Severity Reaction Status Date / Time No Known Allergies Allergy Verified 12/22/23 08:35 Worker's Comp Is this a Worker's Comp case?: No [facility] Disclaimer: The information contained in this section may have been updated after the patient was seen, as this information can be updated by other users. Medical History (Updated 05/22/24 @ 20:10 by Afshan Paez APRN) Asthma Social History (Updated 05/21/22 @ 13:51 by Lisette Marti RN) Smoking Status: Current every day smoker tobacco type: cigarettes packs per day: 1 alcohol intake: never substance use type: denies use current occupational status: employed Travel in the last 8 weeks: None household members: family Have you lived/traveled outside [place] in past 30 days?: No Contact w/someone who lives/traveled outside US past 30 days?: No Exposure to someone with infectious disease in past 14 days?: No Do you have a fever (greater than 100.4 F or 38 C)?: No Have you tested positive for COVID-19: No Exposed to someone with COVID-19 in past 14 days?: No Do you have a sore throat?: Yes Do you have a cough?: Yes Do you have any weakness?: No Do you have any diarrhea?: No Are you experiencing any unusual bleeding?: No Do you have any muscle aches/pain?: No Do you have any abdominal pain?: No Are you experiencing loss of taste or smell?: No ROS Obtained: Yes All systems reviewed & no additional complaints except as documented and Yes Systems reviewed as appropriate & no additional complaints except as documented Constitutional Constitutional: Reports system reviewed and no additional complaints, except as documented, Reports as per HPI, Reports body ache and Reports headache(s) ENT Ears, Nose, Mouth, and Throat: Reports system reviewed and no additional comp laints, except as documented, Reports as per HPI, Reports headache(s) and Reports sore throat Cardiovascular Cardiovascular: Reports system reviewed and no additional complaints, except as documented and Reports as per HPI Respiratory Respiratory: Reports system reviewed and no additional complaints, except as documented, Reports as per HPI, Reports chest congestion, Reports cough, Reports pain with cough and Reports wheezing (on and off) Gastrointestinal Gastrointestingal: Reports system reviewed and no additional complaints, except as documented and as per HPI; Denies abdominal pain Genitourinary Female Genitourinary: Reports system reviewed and no additional complaints, except as documented and Reports as per HPI Musculoskeletal Musculoskeletal: Reports system reviewed and no additional complaints, except as documented and Reports as per HPI Integumentary/Breasts Skin/Breast: Reports system reviewed and no additional complaints, except as documented and Reports as per HPI Neurologic Neurologic: Reports system reviewed and no additional complaints, except as documented, Reports as per HPI and Reports headache(s) Allergic/Immunologic Allergic/Immunologic: Reports wheezing (on and off) Physical Exam General General appearance: alert and in no apparent distress ENT ENT exam: Present mucous membranes moist Expanded ENT Exam Nose exam: Present sinus tenderness Throat exam: Present tonsillar erythema; Absent tonsillomegaly or tonsillar exudate Chest Chest inspection: Present normal inspection and symmetric chest wall rise Respiratory Respiratory exam: Present normal lung sounds bilaterally and wheezes; Absent respiratory distress Cardiovascular Cardiovascular exam: Present regular rate, normal rhythm and normal heart sounds Abdominal Exam Abdominal exam: Present soft and normal bowel sounds; Absent distention or tenderness Neurological Exam Neurological exam: Present alert, oriented X3 and normal gait Medical Decision Making Medical Records Screening: Per USPSTF and CDC recommendations, given the prevalence of disease in our region, it is our hospital?s policy to screen for HIV and viral Hepatitis for all patients aged 18 and over and those with ongoing risk factors. Jonny Inquiry Pt receiving controlled substance: No Jonny was queried for this patient: No Vital Signs: 05/22/24 19:35 Temperature 98.3 F Temperature Source Oral Pulse Rate [Left Brachial] 86 Respiratory Rate 19 Blood Pressure [Left Arm] 141/78 H Blood Pressure Mean [Left Arm] 99 Blood Pressure Source [Left Arm] Automatic Cuff Blood Pressure Position [Left Arm] Sitting 02 Sat by Pulse Oximetry 98 Oxygen Delivery Method Room Air
[2024-05-22] MEDS: cefTRIAXone 1GM VIAL 1 GM IM (20:25)
[2024-05-22] MEDS: METHYLPREDNISOLONE SOD SUCC 125MG VIAL 125 MG IM (20:25)
[2024-05-22] MEDS: IPRATROPIUM/ALBUTEROL 3 ML NEB IH (20:25)
[2024-05-22] MEDS: LIDOCAINE 1% 5ML PF VIAL IM (20:25)
[2024-05-22 20:38] VITALS: BP 141/70; PULSE 86; RESP 19; TEMP 36.8; O2SAT 98
== END 2024-05-22 20:40 | disposition home or self-care (01) ==
PROVIDERS: Emergency Provider Nurse Practitioner; PCP Family Medicine
DX: J20.9 Acute bronchitis, unspecified (principal); J01.90 Acute sinusitis, unspecified
CPT/HCPCS: 94640; 96372; 99213; G0381; J0696; J2919; J7620

== ENCOUNTER 2024-06-12 09:24 | Emergency (ER) | payer BC, SELFPAY ==
[2024-06-12 09:25] VITALS: BP 114/84; PULSE 115; RESP 18; TEMP 36.7; O2SAT 100; BMI 30.9
--- NOTE | 2024-06-12 09:49 | XR_ITS ---
PROCEDURE INFORMATION: Exam: XR Left Ribs with PA Chest Exam date and time: 06/12/2024 9:47 AM Age: 49 years old Clinical indication: Other: Left posterior axillary line pain after cough TECHNIQUE: Imaging protocol: Radiologic exam of the left ribs with PA chest. Views: 3 views COMPARISON: CR XR CHEST 2V 04/01/2022 8:22 AM FINDINGS: Lungs: See Soft tissues finding. Pleural spaces: Unremarkable. No pleural effusion. No pneumothorax. Heart/Mediastinum: Unremarkable. No cardiomegaly. Bones/joints: See Soft tissues finding. Soft tissues: The submitted view of the chest is unremarkable. No acute cardiopulmonary process. The ribs are grossly normal. No acute or chronic fracture appreciated. No lytic process or expansile process. No rib notching. IMPRESSION: Unremarkable ribs.
--- NOTE | 2024-06-12 10:03 | PC.NURSE ---
ROUNDED ON THE PT. THE PT VOICES THAT SHE DOES NOT NEED ANYTHING AT THIS TIME. CALL LIGHT IS WITHIN REACH OF THE PT. FAMILY MEMBER IS PRESENT AT THE BEDSIDE. PT WAS GIVEN A PILLOW.
[2024-06-12] MEDS: LIDOCAINE 5% TRANSDERMAL PATCH 1 EACH TP (10:04)
[2024-06-12] MEDS: METHOCARBAMOL 500MG TABLET 1500 MG PO (10:04)
[2024-06-12] MEDS: predniSONE 20MG TAB 60 MG PO (10:04)
--- NOTE | 2024-06-12 10:04 | HMH.EDGENADL ---
Discharge Plan Disposition Patient Disposition: Home, Self-Care Prescriptions Prescriptions: New prednisone 20 mg tablet 40 mg PO DAILY 5 Days Qty: 10 0RF methocarbamol 750 mg tablet 1,500 mg PO TID 5 Days Qty: 30 0RF lidocaine 5 % adhesive patch,medicated 1 patch topical DAILY Qty: 30 0RF Rx Instructions: leave on most painful area for up to 12 hrs Referrals Follow up/Referrals: Balwinder Willams MD [Primary Care Provider] - See instructions Activity Restrictions/Add. Instructions Additional Instructions/Restrictions: Follow-up with your family doctor as needed for this visit to the emergency department. Clinical Impressions Clinical Impression: Intercostal muscle strain Print Language Print Language: Kazakh Discharge ED Provider: Giacomo Mccarty General Adult HPI General Chief complaint: PAIN Stated complaint: back pain rib pain left leg pain Time Seen by Provider: 06/12/24 09:31 Mode of Arrival: Ambulatory Source of Information: Patient Limitations: No Limitations Description of Symptoms (Recalled from ER Triage Doc. by RN): Patient reports getting into a coughing fit and now she is having rib, back and left leg pain. States she took four ibuprofen at 4am. History of Present Illness HPI narrative: Please note that above description of symptoms, in this electronic medical record under categorization of recalled from ER triage doctor by RN are reflective of an initial nursing assessment, however, is not reflective of my full history and physical exam that was personally taken and clarified. Consequentially, this preceding description of symptoms, which may include the patient's categorized chief complaint in the EMR, do not reflect my personal clinical impression, and the ultimate description of history of present illness and patient stated complaints should be deferred to this section of the note. Unless stated otherwise or congruent with this section of the note, additional signs, symptoms, or incongruence should be interpreted as inaccurate with my clinical impression. Related Data Previous Rx's ?Medication ?Instructions ?Recorded lidocaine 5 % topical patch 1 patch topical DAILY #30 ea 06/12/24 methocarbamol 750 mg tablet 1,500 mg (2 x 750 mg) PO TID 5 06/12/24 days #30 tabs prednisone 20 mg tablet 40 mg (2 x 20 mg) PO DAILY 5 days 06/12/24 #10 tabs Allergies Allergy/AdvReac Type Severity Reaction Status Date / Time No Known Allergies Allergy Verified 12/22/23 08:35 [facility] Disclaimer: The information contained in this section may have been updated after the patient was seen, as this information can be updated by other users. Medical History (Updated 06/12/24 @ 10:58 by Giacomo Mccarty MD) Asthma Social History (Updated 05/21/22 @ 13:51 by Lisette Marti RN) Smoking Status: Current every day smoker tobacco type: cigarettes packs per day: 1 alcohol intake: never substance use type: denies use current occupational status: employed Travel in the last 8 weeks: None household members: family Have you lived/traveled outside US in past 30 days?: No Contact w/someone who lives/traveled outside US past 30 days?: No Exposure to someone with infectious disease in past 14 days?: No Do you have a fever (greater than 100.4 F or 38 C)?: No Have you tested positive for COVID-19: No Exposed to someone with COVID-19 in past 14 days?: No Do you have a sore throat?: No Do you have a cough?: No Do you have any weakness?: No Do you have any diarrhea?: No Are you experiencing any unusual bleeding?: No Do you have any muscle aches/pain?: No Do you have any abdominal pain?: No Are you experiencing loss of taste or smell?: No Other Medical History Have you received the Flu Vaccine for this season: Yes Have you received the Pneumonia Vaccine: No ROS Obtained: Yes All systems reviewed & no additional complaints except as documented Physical Exam General General appearance: alert and in distress (Secondary to pain, pacing around the room) Head Head exam: atraumatic and normocephalic Eye Eye exam: Present normal appearance, PERRL and EOMI Neck Neck exam: Present normal inspection, full ROM and trachea midline Chest Chest inspection: Present tenderness (Posterolaterally on the left side) Respiratory Respiratory exam: Present normal lung sounds bilaterally; Absent respiratory distress, wheezes, stridor, accessory muscle use or prolonged expiratory phase Cardiovascular Cardiovascular exam: Present regular rate, normal rhythm and other (Pulses equal symmetric in upper and lower extremities) Abdominal Exam Abdominal exam: Present soft; Absent distention, tenderness or pulsatile mass Extremities Exam Extremities exam: Absent edema Neurological Exam Neurological exam: Present alert, oriented X3 and CN II-XII intact; Absent motor sensory deficit Skin Skin exam: Present warm and dry; Absent diaphoresis or erythema Medical Decision Making Medical Records Medical records reviewed: Yes I reviewed the patient's medical records. Screening: Per USPSTF and CDC recommendations, given the prevalence of disease in our region, it is our hospital?s policy to screen for HIV and viral Hepatitis for all patients aged 18 and over and those with ongoing risk factors. Jonny Inquiry Pt receiving controlled substance: No Jonny was queried for this patient: No Vital Signs: 06/12/24 09:25 Temperature 98.0 F Temperature Source Oral Pulse Rate [Radial] 115 H Respiratory Rate 18 Blood Pressure [Right Arm] 114/84 Blood Pressure Mean [Right Arm] 94 Blood Pressure Source [Right Arm] Automatic Cuff Blood Pressure Position [Right Arm] Sitting 02 Sat by Pulse Oximetry 100 Oxygen Delivery Method Room Air Orders (Tests/Meds): ED MEDICATIONS Discontinued Medications Generic Name Dose Route Start Last Admin Trade Name Freq PRN Reason Stop Dose Admin Lidocaine 1 each 06/12/24 09:49 06/12/24 10:04 Lidocaine 5% Transdermal Patch TP 06/12/24 09:50 1 each ONCE ONE Administration Methocarbamol 1,500 mg 06/12/24 09:49 06/12/24 10:04 Methocarbamol 500mg Tablet PO 06/12/24 09:50 1,500 mg ONCE ONE Administration Prednisone 60 mg 06/12/24 09:49 06/12/24 10:04 Prednisone 20mg Tab PO 06/12/24 09:50 60 mg ONCE ONE Administration ORDERS Category Date Time Status XR ribs LT min 3V w CXR1V Stat Exams 06/12/24 09:49 Completed HIV Combo Stat Lab 06/12/24 09:33 Ordered Hepatitis C Ab Qual. W/ RFX Stat Lab 06/12/24 09:33 Ordered Medical Decision Narrative: This a 49-year-old female presenting with chest wall pain after coughing. States that it happened yesterday, 06/11. Was taking ibuprofen and it seemed to help, but chest wall pain is so significant that it hurts when she steps down on her left foot, so has been largely laying around for the last few hours to avoid moving. Hurts with changes in position, coughing, deep inspiration, etc. Not coughing up blood. Does not feel short of breath, but has moderate to severe pain that starts in her posterior lateral chest wall on the left and radiates along the ribs to the left anterior chest wall. Made worse with application of pressure. History obtained the patient. On arrival, she appears to be in mild distress secondary pain, pacing around the room. Lungs are clear, cardiac exam normal. No pulse deficits. She does have midline thoracic spine tenderness and tenderness along ribs and intercostal muscles. Differential includes intercostal muscle strain, rib fracture, pneumothorax, pulmonary contusion, pleurisy, among others. Patient was given steroid, muscle relaxer, lidocaine patch as she took Tylenol and Motrin at home before arrival. Conversation was had with patient regarding CT scan versus x-rays, opted for x-rays at this time. These were ordered. On independent interpretation, no acute bony abnormality. No underlying lung abnormality. On reevaluation, patient states she is actually feeling much better with oral meds. I feel this is consistent with either disc herniation or intercostal muscle strain. Because patient at baseline without signs or symptoms of clinical decompensation, deemed appropriate for discharge. Results were relayed to patient who voiced understanding and were agreeable to outpatient management and follow up. I discussed my clinical impression with patient and answered all questions. At this time, the evidence for any other entities in the differential is insufficient to warrant any further testing or ED observation. This was explained as well. Advisory was given that persistent or worsening symptoms require further evaluation. I confirmed the understanding of this discussion. Clinical Sales Consultant disclaimer Much of this encounter note is an electronic steam drier operator spoken language to printed text. Electronic steam drier operator of the spoken language may permit errors. Although I have reviewed the note, some errors may still exist. Critical Care Critical Care Time Critical Care Time: No
[2024-06-12 11:01] VITALS: BP 120/72; PULSE 88; RESP 18; TEMP 36.7; O2SAT 98
== END 2024-06-12 11:07 | disposition home or self-care (01) ==
PROVIDERS: Emergency Provider Emergency Medicine; PCP Family Medicine
DX: S29.011A Strain of muscle and tendon of front wall of thorax, initial encounter (principal); R05.9 Cough, unspecified; R07.82 Intercostal pain; M54.9 Dorsalgia, unspecified; M79.605 Pain in left leg; F17.210 Nicotine dependence, cigarettes, uncomplicated
CPT/HCPCS: 71101; 99283

== ENCOUNTER 2024-06-12 17:13 | Emergency (ER) | payer BC, SELFPAY ==
[2024-06-12 17:15] VITALS: BP 153/83; PULSE 68; RESP 18; TEMP 36.5; O2SAT 97; BMI 31.7
[2024-06-12 17:22] VITALS: BP 154/88; PULSE 127; O2SAT 97
--- NOTE | 2024-06-12 17:44 | CT_ITS ---
PROCEDURE INFORMATION: Exam: CT Thoracic Spine Without Contrast Exam date and time: 06/12/2024 6:21 PM Age: 49 years old Clinical indication: Pain in thoracic spine; Without myelpathy or radiculopathy; Additional info: Fall TECHNIQUE: Imaging protocol: Computed tomography of the thoracic spine without contrast. Radiation optimization: All CT scans at this facility use at least one of these dose optimization techniques: automated exposure control; mA and/or kV adjustment per patient size (includes targeted exams where dose is matched to clinical indication); or iterative reconstruction. COMPARISON: CR XR RIBS LT MIN 3V W CXR1V 06/12/2024 9:47 AM FINDINGS: Bones/joints: No acute fracture. Normal alignment. No significant disc bulge or herniation. No severe spinal canal stenosis. No significant neural foraminal narrowing. Soft tissues: Unremarkable. IMPRESSION: Unremarkable CT Spine.
--- NOTE | 2024-06-12 17:46 | PC.NURSE ---
ROUNDED ON THE PT. THE PT VOICES THAT SHE DOES NOT NEED ANYTHING AT THIS TIME. CALL LIGHT IS WITHIN REACH OF THE PT. FAMILY MEMBER IS PRESENT AT THE BEDSIDE.
[2024-06-12] MEDS: ORPHENADRINE CITRATE 60MG/2ML VIAL 30 MG IM (17:58)
[2024-06-12] MEDS: KETOROLAC 30MG/ML VIAL 15 MG IM (17:58)
--- NOTE | 2024-06-12 18:03 | ED_ITS ---
<Statement entered by Virgie Wilson MD - 06/12/24 23:05> I was consulted by the DANN, and we discussed the complexity of the problems being addressed. I approved the treatment and management plan for this patient's care in the emergency department, thus performing a substantive portion of the medical decision making. Virgie Wilson MD, VILMA, FACEP Discharge Plan Disposition Patient Disposition: Home, Self-Care Condition: Good Prescriptions Prescriptions: No Action prednisone 20 mg tablet 40 mg PO DAILY 5 Days Qty: 10 0RF methocarbamol 750 mg tablet 1,500 mg PO TID 5 Days Qty: 30 0RF lidocaine 5 % adhesive patch,medicated 1 patch topical DAILY Qty: 30 0RF Rx Instructions: leave on most painful area for up to 12 hrs Referrals Follow up/Referrals: Mundo Willams MD [Primary Care Provider] - See instructions Activity Restrictions/Add. Instructions Additional Instructions/Restrictions: Please follow-up with primary care provider for symptoms. You may need further imaging or workup for symptoms. Clinical Impressions Clinical Impression: Musculoskeletal pain, Costochondritis Instructions Patient Instructions: DI for Acute Pain -- Adult Print Language Print Language: Azeri Discharge ED Provider: Virgie Wilson General Adult HPI General Chief complaint: PAIN Stated complaint: back and rib pain Time Seen by Provider: 06/12/24 17:31 Mode of Arrival: Ambulatory Source of Information: Patient Limitations: No Limitations Description of Symptoms (Recalled from ER Triage Doc. by RN): Patient states that she was seen this morning for back and rib pain after getting into a coughing fit. States that she went home and slept and after waking up she sneezed she began to have severe pain again so she came back to the er for re evaluation. History of Present Illness HPI narrative: This is a 49-year-old female who presents to the ED today for complaint of back and rib pain after sneezing. She was here this morning for back and rib pain as well. She went home and took some ibuprofen and slept and then started having severe pain again so she came back. She says every time she puts pressure on her left leg it shoots pain up into her left back. She says it does not necessarily hurt in her spine until you touch it. She says she was here earlier and the physician talked to her about having a CT but she declined. She says she is here now because she wants the CT scan. She says she was sent home with prednisone and a muscle relaxer and pain patches. She says those did not help her. Related Data Previous Rx's ?Medication ?Instructions ?Recorded lidocaine 5 % topical patch 1 patch topical DAILY #30 ea 06/12/24 methocarbamol 750 mg tablet 1,500 mg (2 x 750 mg) PO TID 5 06/12/24 days #30 tabs prednisone 20 mg tablet 40 mg (2 x 20 mg) PO DAILY 5 days 06/12/24 #10 tabs Allergies Allergy/AdvReac Type Severity Reaction Status Date / Time No Known Allergies Allergy Verified 12/22/23 08:35 [facility] Disclaimer: The information contained in this section may have been updated after the patient was seen, as this information can be updated by other users. Medical History (Updated 06/12/24 @ 20:19 by Oxana Coates (ED), IMPORT AND EXPORT CLERK) Asthma Social History (Updated 05/21/22 @ 13:51 by Lisette Marti RN) Smoking Status: Current every day smoker tobacco type: cigarettes packs per day: 1 alcohol intake: never substance use type: denies use current occupational status: employed Travel in the last 8 weeks: None household members: family Have you lived/traveled outside US in past 30 days?: No Contact w/someone who lives/traveled outside US past 30 days?: No Exposure to someone with infectious disease in past 14 days?: No Do you have a fever (greater than 100.4 F or 38 C)?: No Have you tested positive for COVID-19: No Exposed to someone with COVID-19 in past 14 days?: No Do you have a sore throat?: No Do you have a cough?: No Do you have any weakness?: No Do you have any diarrhea?: No Are you experiencing any unusual bleeding?: No Do you have any muscle aches/pain?: No Do you have any abdominal pain?: No Are you experiencing loss of taste or smell?: No Other Medical History Have you received the Flu Vaccine for this season: Yes Have you received the Pneumonia Vaccine: No ROS Obtained: Yes Systems reviewed as appropriate & no additional complaints except as documented Constitutional Constitutional: Reports as per HPI Physical Exam General General appearance: alert and in distress Head Head exam: atraumatic and normocephalic Eye Eye exam: Present normal appearance, PERRL and EOMI ENT ENT exam: Present normal oropharynx and mucous membranes moist Neck Neck exam: Present normal inspection, full ROM and trachea midline Respiratory Respiratory exam: Present normal lung sounds bilaterally Cardiovascular Cardiovascular exam: Present regular rate, normal rhythm, normal heart sounds, +S1 and +S2 Abdominal Exam Abdominal exam: Present soft and normal bowel sounds Extremities Exam Extremities exam: Present normal inspection, full ROM and normal capillary refill Back Exam Back exam: Present normal inspection, tenderness and vertebral tenderness (In her thoracic spine and to the left) Neurological Exam Neurological exam: Present alert, oriented X3 and normal gait Skin Skin exam: Present warm and dry Medical Decision Making Medical Records Screening: Per USPSTF and CDC recommendations, given the prevalence of disease in our region, it is our hospital?s policy to screen for HIV and viral Hepatitis for all patients aged 18 and over and those with ongoing risk factors. Jonny Inquiry Pt receiving controlled substance: No Vital Signs: 06/12/24 17:15 06/12/24 17:22 06/12/24 20:22 Temperature 97.7 F 97.7 F Temperature Source Oral Oral Pulse Rate 127 H 106 H Pulse Rate [Radial] 68 Respiratory Rate 18 20 Blood Pressure 154/88 H 108/77 L Blood Pressure [Left Arm] 153/83 H Blood Pressure Mean [Left Arm] 106 Blood Pressure Source [Left Arm] Automatic Cuff Blood Pressure Position Sitting Blood Pressure Position [Left Arm] Sitting 02 Sat by Pulse Oximetry 97 97 Oxygen Delivery Method Room Air Room Air Lab Data Lab Results 06/12/24 18:05: Urine HCG, Qual Negative Orders (Tests/Meds): ED MEDICATIONS Discontinued Medications Generic Name Dose Route Start Last Admin Trade Name Cassie PRN Reason Stop Dose Admin Ketorolac Tromethamine 15 mg 06/12/24 17:44 06/12/24 17:56 Ketorolac 30mg/Ml Vial IV 06/12/24 17:45 Not Given ONCE ONE Ketorolac Tromethamine 15 mg 06/12/24 17:55 06/12/24 17:58 Ketorolac 30mg/Ml Vial IM 06/12/24 17:56 15 mg ONCE ONE Administration Orphenadrine Citrate 30 mg 06/12/24 17:44 06/12/24 17:56 Orphenadrine Citrate 60mg/2ml Vial IV 06/12/24 17:45 Not Given ONCE ONE Orphenadrine Citrate 30 mg 06/12/24 17:55 06/12/24 17:58 Orphenadrine Citrate 60mg/2ml Vial IM 06/12/24 17:56 30 mg ONCE ONE Administration ORDERS Category Date Time Status CT thoracic spine wo con Stat Cat Scan 06/12/24 17:44 Completed Urine , HCG Qual. Stat Lab 06/12/24 18:05 Completed Critical Care Critical Care Time Critical Care Time: No
[2024-06-12 18:15] LABS: Urine Pregnancy, HCG Qual. Negative (Negative)
--- NOTE | 2024-06-12 19:12 | PC.NURSE ---
Rounding complete; no needs at this time
[2024-06-12 20:22] VITALS: BP 108/77; PULSE 106; RESP 20; TEMP 36.5; O2SAT 98
== END 2024-06-12 20:26 | disposition home or self-care (01) ==
PROVIDERS: Nurse Practitioner; Emergency Provider Student in an Organized Health Care Education/Training Program; PCP Psychiatry & Neurology Sleep Medicine
DX: M94.0 Chondrocostal junction syndrome [Tietze] (principal); M79.18 Myalgia, other site; M54.9 Dorsalgia, unspecified; R07.82 Intercostal pain; F17.210 Nicotine dependence, cigarettes, uncomplicated
CPT/HCPCS: 72128; 81025; 96372; 96374; 99284; J1885; J2360

== ENCOUNTER 2024-09-14 16:58 | Outpatient (CLI) | payer BC, SELFPAY ==
--- NOTE | 2024-09-14 16:59 | XR_ITS ---
PROCEDURE INFORMATION: Exam: XR Left Foot Exam date and time: 09/14/2024 5:03 PM Age: 49 years old Clinical indication: Pain; Foot; Left; Additional info: L foot pain TECHNIQUE: Imaging protocol: Radiologic exam of the left foot. Views: 3 or more views. COMPARISON: No relevant prior studies available. FINDINGS: Bones/joints: Fracture of the proximal to midportion of the proximal phalanx of the 4th and 5th digits. Soft tissues: Adjacent soft tissue swelling is present. IMPRESSION: Fracture of the proximal to midportion of the proximal phalanx of the 4th and 5th digits. Adjacent soft tissue swelling is present.
== END 2024-09-14 23:59 | disposition home or self-care (01) ==
LOC: RAD 16:59
PROVIDERS: Visit Provider Student in an Organized Health Care Education/Training Program
DX: S92.512A Displaced fracture of proximal phalanx of left lesser toe(s), initial encounter for closed fracture (principal)
CPT/HCPCS: 73630

== ENCOUNTER 2025-02-21 13:02 | Outpatient (CLI) | payer BC, SELFPAY ==
--- OUTSIDE RECORDS SUMMARY | 2025-02-21 13:12 | XMS_ITS | Continuity of Care Document ---
Author Organization [place] - [place], [employer] [facility] Address [address] [place] [address] Assessment No assessment recorded. Plan of Treatment Reminders Order Date Submit Date Provider Last Modified By Organization Details Last Modified Time Details Appointments None recorded. Lab None recorded. Referral None recorded. Procedures None recorded. Surgeries None recorded. Imaging DEXA [email or web address] [place] [address] ([facility]), [address], [place], [address], 13:01:18 Medication Orders Depo-Group Activities Aide a 150 mg/mL intramuscul ar suspension [address], [address], [address], 5 16:08:56 Breo Ellipta 100 mcg-25 mcg/dose powder for inhalation 2024 025 [facility], [address], [address], 5 11:55:00 albuterol sulfate HFA 90 mcg/actuati on aerosol inhaler 2024 025 [facility], [address], [address], 5 16:06:13 Patient TargetsNo targets recorded. Patient Instructions Encounter Date Encounter Id Patient Instructions Last Modified By Organization Details Last Modified Time 01/27/2025 [id number] asthma attack: care instructions [email or web address] Not available 01/27/2025 15:59:51 Reason for Referral None Reported. Results Created Date Observation Date Name Description Value Unit Range Abnormal Flag Note LastModifiedBy Organization Detail LastModifiedTime 01/29/2005/15/2023 sola NOLASCO, steve chow No observ ation record ed. [email or web address] [facility] [address], [place], [address], 01/28/2025 09:45:57 Result Notes None recorded. Problems Name Problem SNOMED Code Status Onset Date Resolution Date Notes Provider Name and Address Organization Details Recorded Time Acute asthma 678880899 Active 025 ADRIAN Brito [address] [place] [address], [phone] , [facility] [employer] 01/27/2025 15:58:30 Problem Notes None recorded. Medical Equipment None Reported. Allergies No known drug allergies Medications Name Sig Start Date Stop Date Status Note LastModified by Organization Details LastModified Time Depo-Group Activities Aide a 150 mg/mL intramuscul ar suspension Inject 1 mL every 3 months by intramusc ular route. 2024 active Not Available Not Available Not Avai lable albuterol sulfate HFA 90 mcg/actuati on aerosol inhaler Inhale 2 puffs every 4 hours by inhalatio n route for 30 days. 2024 active Not Available Not Available Not Avai lable Breo Ellipta 100 mcg-25 mcg/dose powder for inhalation Inhale 1 puff every day by inhalatio n route for 30 days. 01/28 completed Not Available Not Available Not Available Wixela Inhub 250 mcg-50 mcg/dose powder for inhalation Inhale 1 puff twice a day by inhalatio n route for 30 days. 2024 active Not Available Not Available Not Avai lable Vitals Date Recorded Body weight Body mass index (BMI) Body height Body temperature Heart rate Oxygen saturation Oxygen saturation in Arterial blood by Pulse oximetry Systolic And Diastolic Provider Name and Address Organization Details Last Updated DateTime 57264.8 2 g 26.6 kg/m2 162.56 cm 98.3 [degF] 96 /min 96 % 96 % 114/78 mm[Hg] Brigitte Abdul [employer] 15:49:56 Social History Question Answer Notes LastModified by Organizat ion Details LastModified Time Tobacco Smoking Status Current Every Day Smoker Brigitte Abdul gracie, [employer] 01/27/2025 15:42:40 Do You Have An Advance Directive? No Information not available 01/27/2025 Is Your Home Air Conditioned? Yes Information not available 01/27/2025 If You Are , What Was Your Level Of Alcohol Consumption Prior To ? None Information not available 01/27/2025 What Is Your Level Of Caffeine Consumption? None Information not available 01/27/2025 Are You A Caregiver? No Information not available 01/27/2025 What Type Of Diet Are You Following? REGULAR Information not available 01/27/2025 What Is The Highest Grade Or Level Of School You Have Completed Or The Highest Degree You Have Received? [id number] Information not available 01/27/2025 Have There Been Any Changes To Your Family Or Social Situation? No Information not available 01/27/2025 Are There Any Guns Present In Your Home? No Information not available 01/27/2025 Which Of Your Hands Is Dominant? Right Information not available 01/27/2025 Do You Engage In Moderate/heavy Exercise (e.g. Brisk Walk, Jogging, Strength Training, Etc)? No Information not available 01/27/2025 Where Do You Live? [facility] Information not available 01/27/2025 Do You Have A Medical Power Of Repairing Calibrator? No Information not available 01/27/2025 What Was The Date Of Your Most Recent Tobacco Screening? 01/27/2025 Information not available 01/27/2025 Are There Any Occupational Health Risks Where You Work? None Information not available 01/27/2025 What Is Your Current Pack Years? 30ormorepackyears Information no t available 01/27/2025 Do You Have Any Pets? Yes Information not available 01/27/2025 What Is Your Relationship Status? Information not available 01/27/2025 Do You Wear A Seatbelt When Driving Or As A Passenger? Yes Information not available 01/27/2025 Do You Use Your Seat Belt Or Car Seat Routinely? Yes Information not available 01/27/2025 Are You Sexually Active? Yes Information not available 01/27/2025 Do You Have Smoke And Carbon Monoxide Detectors In Your Home? Yes Information not available 01/27/2025 At What Age Did You Start Smoking Tobacco? 16 Information not available 01/27/2025 Are You Passively Exposed To Smoke? Yes Information not available 01/27/2025 Are There Any Smokers In Your House? Yes Information not available 01/27/2025 How Much Tobacco Do You Smoke? 2 PPD Information not available 01/27/2025 Has Tobacco Cessation Counseling Been Provided? Yes Information not available 01/27/2025 On What Date Was Tobacco Cessation Counseling Provided? 01/27/2025 Information not available 01/27/2025 How Many Years Have You Smoked Tobacco? 33 Information not available 01/27/2025 Have You Recently Traveled Abroad? No Information not available 01/27/2025 What Contraceptive Method Was Reported At Start Of This Visit? Injectables Information not available 01/27/2025 Do You Feel Safe In Your Home? Yes Information not available 01/27/2025 Do You Have Any Dietary Restrictions? No Information not available 01/27/2025 Sex: Unknown Functional Status Question Answer Note LastModified by Organizat ion Details LastModified Time Do you use any illicit or recreational drugs? No Information not available 01/27/2025 Do you or have you ever used any other forms of tobacco or nicotine? Yes Information not available 01/27/2025 What is your level of alcohol consumption? None Information not available 01/27/2025 Do you or have you ever used smokeless tobacco? Never used smokeless tobacco Information not available 01/27/2025 Are you currently employed? Yes Information not available 01/27/2025 Do you have transportation difficulties? No Information not available 01/27/2025 Are you able to care for yourself independently? Yes Information not available 01/27/2025 Do you or have you ever used e-cigarettes or vape? Never used electronic cigarettes Information not available 01/27/2025 Mental Status Question Answer Note LastModified by Organization D etails LastModified Time Do you feel stressed (tense, restless, nervous, or anxious, or unable to sleep at night)? [id number] Information not available 01/27/2025 Family History Relationship Description Onset Age of this Age Resolved Age Notes LastModified by Organization Details LastModified Time Father No current problems or disability Not available 01/27 15:46:56 Mother No current problems or disability Not available 01/27 15:46:56 Medical History Condition Response Coronary Artery Disease N Other N Gout N Kidney Stones N Blood Diseases N Hyperthyroidism N Blood Transfusion N Breast Cancer N Emergency room visit since last appointm ent. N COPD N Depression N Dermatologic Disorders N Hypothyroidism N Lung Disease N Developmental or Behavioral Disorders N Defects or Inherited Disease N Breast Problem N Difficulty Swallowing N Anesthesia Complications N History of STI N Meniere's disease N Anxiety Disorder N Muscle, Joint, or Bone Problems N Autoimmune disease N Vision or Eye Problems N Arthritis N Polyps N Infertility N Mental Disorder N Congenital Anomalies N Acid Reflux (GERD) N Cancer N Stroke N Neurologic/Epilepsy N Endometriosis N Bladder or Kidney Problems N High Cholesterol N Liver Disease N Organ Transplant N Psychiatric/Mental Health Condition N Fibromyalgia N Dialysis N Schizophrenia N Headaches N Kidney Disease N Allergies/Hayfever N Heart Problems N Ear or Hearing Problems N Hospitalizations N Learning Disorder N Artificial Joints N Thyroid Problems N GI Problems N Acne N ADD/ADHD N Eating Disorder N Anemia N Constipation N Mental Illness N Ovarian Cancer N Diabetes N Bedwetting N Hepatitis/Liver Disease N Tuberculosis N Eczema N Diverticulitis N Abuse/Domestic Violence N Asthma N Trauma/Violence N Substance Abuse N Amnesia/Cognitive Decline N Reflux/GERD N Depression/ depression N Hepatitis N Heart Disease N Pulmonary Embolism N Tourette Syndrome N Chronic Ear Infections N Pre-Eclampsia N Hypertension N Chicken Pox N Autism Spectrum Disorder (ASD) N Osteoporosis N Thrombophilias N Gynecological History Statement/Question Response Menses Monthly N Date of Last Pap Smear Current Control Method Depo-Group Activities Aide a Most Recent Mammogram Obstetrics History GPAL:G 2 P 2 0 0 2 Type Value Multiple Births 0 Full Term 2 Induced 0 Spontaneous 0 Premature 0 Living 2 Ectopics 0 Total 2 Immunizations Vaccine Type Date Status Note Provider Nam e and Address Organization Details Recorded Time COVID-19, mRNA, LNP-S, PF, 30 mcg/0.3 mL dose 01/04/2021 completed Not Available [facility] 15:41:17 COVID-19, mRNA, LNP-S, PF, 30 mcg/0.3 mL dose 02/01/2021 completed Not Available [facility] 15:41:17 Past Encounters Encounter ID Performer Location Encounter Start Date Encounter Closed Date Diagnosis/Indication Diagnosis SNOMED-CT Code Diagnosis ICD10 Code Diagnosis IMO Codes Diagnosis Note [id number] ADRIAN Brito [facility] [address] [place] [address] 01/27/2025 15:38:27 01/27/2025 16:09:00 Surveillance of depot contraception 054941982 Z30.42 [id number] Will give Depo today but f/u with ELECTRICAL PROSPECTING OBSERVER to discuss if this is still needed at age 49 Acute asthma 980279045 J 45.175 4652977 Health Concerns Section Related Observation LastModified by Organization Detai ls LastModified Time None Recorded Concern Status LastModified by Organization Details LastModified Time None Recorded Payers Encounter Date Sequence Insurance Name Policy Number Policy Kidd Covered Member ID Kidd Member ID Guarantor Name 01/27/2025 1 [place] [id number] Rin Guzman [id number] Rin Guzman Notes Date Note Type Note Provider Name and Address Organization Details Recorded Time 01/27/2025 text/html ROS as noted in the HPI Patient presents to establish care.States she has been on Depo Provera for 10+ years and injection is due.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 States he put her on Depo because it was a safer option due to smoking, and it stops period. Has no idea if she has gone thru menopause or not.History of asthma and needs refills on inhalers. ADRIAN Brito [address] [place], [address], [facility] [employer] 01/28/2025 17:52:32 OBGyn Episode No OBEpisode recorded.
--- OUTSIDE RECORDS SUMMARY | 2025-02-21 13:12 | XMS_ITS | Data Portability ---
Author Organization [employer] [place] [facility] Address [address] [place] [address] Assessment No assessment recorded. Plan of Treatment Reminders Order Date Submit Date Provider Last Modified By Organization Details Last Modified Time Details Appointments None recorded. Lab None recorded. Referral None recorded. Procedures None recorded. Surgeries None recorded. Imaging DEXA [email or web address] [place] [address] ([facility]), [address], [place], [address], 13:01:18 Medication Orders Depo-Cotton Feeder a 150 mg/mL intramuscul ar suspension [address], [address], [address], 16:08:56 Breo Ellipta 100 mcg-25 mcg/dose powder for inhalation 2024 025 [facility], [address], [address], 11:55:00 albuterol sulfate HFA 90 mcg/actuati on aerosol inhaler 2024 025 [facility], [address], [address], 16:06:13 Patient TargetsNo targets recorded. Patient Instructions Encounter Date Encounter Id Patient Instructions Last Modified By Organization Details Last Modified Time 01/27/2025 [id number] asthma attack: care instructions [email or web address] Not available 01/27/2025 15:59:51 Reason for Referral None Reported. Results Created Date Observation Date Name Description Value Unit Range Abnormal Flag Note LastModifiedBy Organization Detail LastModifiedTime 01/29/2005/15/2023 sola NOLASCO bilat eral No observ ation record ed. [facility] [address], [place], [address], 01/28/2025 09:45:57 Result Notes None recorded. Problems Name Problem SNOMED Code Status Onset Date Resolution Date Notes Provider Name and Address Organization Details Recorded Time Acute asthma 254666087 Active 025 ADRIAN Brito [address] [place] [address], [phone] , [facility] [employer] 01/27/2025 15:58:30 Problem Notes None recorded. Medical Equipment None Reported. Allergies No known drug allergies Medications Name Sig Start Date Stop Date Status Note LastModified by Organization Details LastModified Time Depo-Cotton Feeder a 150 mg/mL intramuscul ar suspension Inject [...] and Address Organization Details Last Updated DateTime 79415.8 2 g 26.6 kg/m2 162.56 cm 98.3 [degF] 96 /min 96 % 96 % 114/78 mm[Hg] Brigitte Abdul [employer] 15:49:56 Social History Question Answer Notes LastModified by Organizat ion Details LastModified Time Tobacco Smoking Status Current Every Day Smoker Brigitte Abdul gracie, [employer] 01/27/2025 15:42:40 Do You Have An [...] Or The Highest Degree You Have Received? [id number] Information not available 01/27/2025 Have There Been [...] not available 01/27/2025 Where Do You Live? [facility] Information not available 01/27/2025 Do You Have A Medical Power Of Director Of Spa And Guest Experience? No Information not available 01/27/2025 What Was [...] anxious, or unable to sleep at night)? [id number] Information not available 01/27/2025 Family History Relationship Description Onset Age of this Age Resolved Age Notes LastModified by Organization Details LastModified Time Father No current problems or disability Not available 01/27 15:46:56 Mother No current problems or disability Not available 01/27 15:46:56 Medical History Condition Response Coronary Artery Disease N Other N Gout N Blood Diseases N Kidney Stones N Hyperthyroidism N Blood Transfusion N Breast Cancer N Emergency room visit since last appointm ent. N Lung Disease N COPD N Depression N Dermatologic Disorders N Hypothyroidism N Defects or Inherited Disease N Developmental or Behavioral Disorders N Breast Problem N Difficulty Swallowing N [...] N High Cholesterol N Liver Disease N Psychiatric/Mental Health Condition N Organ Transplant N Dialysis N Schizophrenia N Fibromyalgia N Headaches N Kidney Disease N Allergies/Hayfever N Heart Problems N Ear or Hearing Problems N Hospitalizations N Learning Disorder N Artificial Joints N Thyroid Problems N GI Problems N Acne N ADD/ADHD N Eating Disorder N Anemia N Constipation N Mental Illness N Diabetes N Ovarian Cancer N Bedwetting N Hepatitis/Liver Disease N Tuberculosis N Eczema N Abuse/Domestic Violence N Diverticulitis N Asthma N Trauma/Violence N Substance Abuse N Amnesia/Cognitive Decline N Reflux/GERD N Depression/ depression N Hepatitis N Heart Disease N Pulmonary Embolism N Tourette Syndrome N Chronic Ear Infections N Pre-Eclampsia N Hypertension N Chicken Pox N Autism Spectrum Disorder (ASD) N Osteoporosis N Thrombophilias N Gynecological History Statement/Question Response Menses Monthly N Date of Last Pap Smear Current Control Method Depo-Cotton Feeder a Most Recent Mammogram Obstetrics History GPAL:G 2 P 2 0 0 2 Type Value Multiple Births 0 Full Term 2 Induced 0 Spontaneous 0 Premature 0 Living 2 Ectopics 0 Total 2 Immunizations Vaccine Type Date Status Note Provider Nam e and Address Organization Details Recorded Time COVID-19, mRNA, LNP-S, PF, 30 mcg/0.3 mL dose 01/04/2021 completed Not Available [facility] 15:41:17 COVID-19, mRNA, LNP-S, PF, 30 mcg/0.3 mL dose 02/01/2021 completed Not Available [facility] 15:41:17 Past Encounters Encounter ID Performer Location Encounter Start Date Encounter Closed Date Diagnosis/Indication Diagnosis SNOMED-CT Code Diagnosis ICD10 Code Diagnosis IMO Codes Diagnosis Note [id number] ADRIAN Brito [address] [address] 01/27/2025 15:38:27 01/27/2025 16:09:00 Surveillance of depot contraception 359893551 Z30.42 [id number] Will give Depo today but f/u with LACE TEARING SUPERVISOR to discuss if this is still needed at age 49 Acute asthma 412154635 J 45.382 1021447 Health Concerns Section Related Observation LastModified by Organization Detai ls LastModified Time None Recorded Concern Status LastModified by Organization Details LastModified Time None Recorded Advance Directives Directive N: Payers Insurance Date Sequence Insurance Name Policy Number Policy Kidd Covered Member ID Kidd Member ID Guarantor Name 01/31/2025 1 [place] [id number] 9 Rin V Gaunce [id number] 13 Rin Gaunce 01/10/2025 1 [place] [id number] 9 Rin Gaunce [id number] Rin Gaunce Notes Date Note Type Note Provider Name and Address Organization Details Recorded Time 01/27/2025 text/html ROS as noted in the HPI Patient presents to [facility].States she has been on Depo Provera for 10+ years and injection is due.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 States he put her on Depo because it was a safer option due to smoking, and it stops period. Has no idea if she has gone thru menopause or not.History of asthma and needs refills on inhalers. ADRIAN Brito [address] [place] [address], [phone], [facility] [employer] 01/28/2025 17:52:32 OBGyn Episode No OBEpisode recorded.
--- OUTSIDE RECORDS SUMMARY | 2025-02-21 13:12 | XMS_ITS | Clinical Summary ---
Author Organization [facility] Address [address] [place] [address] Care Team Providers Care Endocrinology Teacher Name Role Phone Rudy Willams MD Primary Care Provider [phone] Allergies No known active allergies Medications albuterol sulfate HFA 108 (90 Base) MCG/ACT inhaler 08/16/2019 Act angelo medroxyPROGESTER one (DEPO-PROVERA) 150 MG/ML injection 08/30/2019 Active tiotropium bromide monohydrate (Spiriva Respimat) 2.5 MCG/ACT aerosol solution inhaler Inhale 2 puffs Daily. 2 inh once a day 1 inhaler 5 09/14/2019 Active Advair Diskus 500-50 MCG/DOSE DISKUS INHALE 1 PUFF BY MOUTH 2 (TWO) TIMES A DAY. 60 each 11 09/20/2020 Active Active Problems Problem Noted Date Diagnosed Date Moderate persistent asthma 09/14/2019 Cough 09/14/2019 Chronic obstructive pulmonary disease 09/14/2019 Tobacco dependence 09/14/2019 Family History Relation Name Status Comments Brother Alive Child 1 Alive Child 2 Alive Father Alive Maternal Grandfather Maternal Grandmother Mother Alive Paternal Grandfather Paternal Grandmother Sister Alive Social History Tobacco Use Types Packs/Day Years Used Date Smoking Tobacco: Every Day Cigarettes 1 25 Smokeless Tobacco: Never Alcohol Use Standard Drinks/Week Comments Never 0 (1 standard drink = 0.6 oz pur e alcohol) AUDIT-C Answer Date Recorded Q1: How often do you have a drink containing alc ohol? Never 09/14/2019 Average Number of Drinks Not on file 020 Frequency of Binge Drinking Not on file 08/20 Abuse Screen Answer Date Recorded Unsafe at Home or Work/School Not on file Feels Threatened by Someone? Not on file 03/2023 Does Anyone Keep You from Co ntacting Others or Doint Things Outside the Home? Not on file 01/30/2023 Physical Sign of Abuse Present Not on file 1 Housing Stability Answer Date Recorded Current Living Arrangements Not on file 01/19 Potentially Unsafe Housing Conditions Not on tena e 01/30/2023 Family and Community Support Answer Evan e Recorded Help with Day-to-Day Activities Not on file 01/30/2023 Lonely or Isolated Not on file 01/30/2023 Employment Answer Date Recorded Do you want help finding or keeping work or a pantera b? Not on file 01/30/2023 Disabilities Answer Date Recorded Concentrating, Remembering, or Making Decisions Difficulty Not on file 01/30/2023 Doing Errands Independently Difficulty Not on fi le 01/30/2023 Education Answer Date Recorded Help with school or training? Not on file Preferred Language Not on file 01/30/2023 Comments Unknown Sex and Gender Information Value Date Recorded Sex Assigned at Not on file Legal Sex Female 3:21 PM EDT Gender Identity Not on file Sexual Orientation Not on file Last Filed Vital Signs Vital Sign Reading Time Taken Comments Blood Pressure 102/70 09/14/2019 10:15 AM EDT Pulse 98 09/14/2019 10:15 AM EDT Temperature 37.2 C (99 F) 09/14/2019 10:15 AM EDT Respiratory Rate - - Oxygen Saturation 98% 09/14/2019 10: 15 AM EDT resting at room air Inhaled Oxygen Concentration - - Weight 66.7 kg (147 lb) 09/14/2019 10:1 5 AM EDT Height - - Body Mass Index - - Plan of Treatment Health Maintenance Due Date Last Done Comments Annual Gynecologic Pelvic and Breast Exam 1974 TDAP/TD VACCINES (1 - Tdap) 1993 MAMMOGRAM 2014 COLOGUARD 2019 COLON CANCER SCREENING 5 YEAR SIGMOIDOSCOPY 2019 COLONOSCOPY 2019 [address] CANCER SCREENING 2019 CT COLONOGRAPHY 2019 FECAL OCCULT BLOOD TEST 2019 FIT Testing (1 year) 2019 ANNUAL PHYSICAL 09/14/2019 HEPATITIS C SCREENING 09/14/2019 Pneumococcal Vaccine 50+ (1 of 1 - PCV) 02/03/2024 ZOSTER VACCINE (1 of 2) 02/03/2024 INFLUENZA VACCINE 11/19/2024 Insurance [employer] Care Teams Endocrinology Teacher Relationship Specialty Start Date End Date Rudy Willams MD [address] [facility] [address] [place] [id number] PCP - General Family Medicine 09/14/19
--- NOTE | 2025-02-21 13:30 | XR_ITS ---
FINAL REPORT TECHNIQUE: Bone densitometry calculations of the lumbar spine and bilateral hips were obtained. CLINICAL HISTORY: SCREENING COMPARISON: None FINDINGS: Using L1-4, the bone mineral density of the spine is 0.843 g/cm2, corresponding to T-score of -1.9 and a Z score of 1.1. This is within the range of osteopenia. Using the left hip, the bone mineral density of the femoral neck is 0.755 g/cm2, corresponding to a T-score of -0.8 and a Z-score of 0.0. This is within the range of normal. Using the right hip, the bone mineral density of the femoral neck is 0.684 g/cm?, corresponding to a T-score of -1.5 and a Z-score of -0.7. This is within the range of osteopenia. NOTE: T-score: Standard deviation compared with peak bone mass of young adult mean. *Following the recommendations of the International Society of Bone densitometry, classification of hip BMD is based on the lower of two T-scores; total hip or femoral neck. IMPRESSION: 1. Bone mineral density of the lumbar spine and right hip within the range of osteopenia. 2. Bone mineral density of the left femoral neck within the range of normal. Reviewed, Interpreted and Dictated by Nataly Sanchez MD Transcribed by Sharron Olmos Authenticated and [facility]
== END 2025-02-21 23:59 | disposition home or self-care (01) ==
LOC: RAD 13:02
PROVIDERS: PCP Physician Assistant; Visit Provider Physician Assistant
DX: M85.88 Other specified disorders of bone density and structure, other site (principal); M85.851 Other specified disorders of bone density and structure, right thigh; Z30.42 Encounter for surveillance of injectable contraceptive; Z13.9 Encounter for screening, unspecified
CPT/HCPCS: 77080